=== PATIENT | male | born 1950 | race Caucasian/White ===

== ENCOUNTER 2018-03-26 12:10 | Day surgery (SDC) | payer MEDICARE ==
[2018-03-26] MEDS ORDERED: MIDAZOLAM INJ 2 MG/2 ML VIAL (J2250) As Ordered (13:05)
[2018-03-26] MEDS ORDERED: ONDANSETRON 4MG/2ML VIAL (J2405) As Ordered (13:05)
[2018-03-26] MEDS ORDERED: PROPOFOL 200 MG/20 ML VIAL As Ordered ×2 (13:05)
[2018-03-26] MEDS ORDERED: LIDOCAINE 2% INJ 100 MG/5 ML SDV (FOR ANES.) As Ordered (13:05)
[2018-03-26] MEDS ORDERED: fentaNYL 100 MCG/2 ML INJECTION (J3010) As Ordered (13:06)
[2018-03-26] MEDS: CETACAINE SPRAY 5GM As Ordered (14:18)
[2018-03-26] MEDS: ceFAZolin 2 GM/D5W 50 ML IV BAG (J0690 PER 500MG) As Ordered (14:46)
[2018-03-26] MEDS: LIDOCAINE 1% SDV INJ 30 ML VIAL As Ordered (15:00)
[2018-03-26] MEDS ORDERED: HYDROMORPHONE HCL 0.5 MG/ 0.5 ML SYRINGE (J1170 PER 1) IV (15:45)
[2018-03-26] MEDS ORDERED: ACETAMINOPHEN TAB 650MG DOSE (2X325MG) PO (15:45)
[2018-03-26] MEDS ORDERED: PERCOCET 5MG/325MG TAB PO (15:45)
[2018-03-26] MEDS ORDERED: fentaNYL 100 MCG/2 ML INJECTION (J3010) IV (15:45)
[2018-03-26] MEDS ORDERED: ONDANSETRON 4MG/2ML VIAL (J2405) IV (15:45)
== END 2018-03-26 16:40 | disposition home or self-care (01) ==
LOC: M SDC 12:10
DX: I63.9 Cerebral infarction, unspecified (principal); G47.30 Sleep apnea, unspecified; I10 Essential (primary) hypertension; E78.5 Hyperlipidemia, unspecified; K21.9 Gastro-esophageal reflux disease without esophagitis; J44.9 Chronic obstructive pulmonary disease, unspecified; Z88.7 Allergy status to serum and vaccine; Z79.899 Other long term (current) drug therapy; F17.210 Nicotine dependence, cigarettes, uncomplicated
CPT/HCPCS: 33282

== ENCOUNTER → 2019-03-22 | Outpatient (REF) | payer MEDICARE ==
[~2019-03-22] MED LIST: AMLO5TAB6 PO; ATOR80TA59 PO; CLOP75TA2 PO; DAPS25TA2 PO; FLON1SPR; LISI-538 PO; MULT1TAB10 PO; OMEP20CA4 PO; SILD50TA PO
== END ==
LOC: M SMT 16:55
PROVIDERS: ATTEND Urology
DX: R35.0 Frequency of micturition (principal)
CPT/HCPCS: 51798; 87086; G0463

== ENCOUNTER → 2019-04-25 | Outpatient (CLI) | payer MEDICARE ==
[~2019-04-25] MED LIST changes: +ISOVUE-370 76% 100ML VIAL (Q9967) As Ordered ONE
--- NOTE | 2019-04-25 16:59 | REP ---
Extracranial CTA: 04/25/2019. Indication: Carotid stenosis. Dizziness. Comparison: None. Technique: Axial images of the extracranial carotid and vertebral arteries were obtained following IV administration of 75 ml Isovue 370. Coronal, sagittal and 3-D rotational reconstructions were provided. Findings: There is moderate irregular atherosclerotic narrowing of the proximal left internal carotid artery just beyond the bifurcation with the stenosis measuring approximately 53%. The left vertebral artery is occluded. There is severe stenosis of the proximal right vertebral artery just beyond the origin. There is no significant right ICA stenosis by NASCET criteria. There is retrograde flow to the left of PICA. There is severe stenosis of the mid to distal basilar artery. Prominent bilateral PCoAs are noted. The great vessel origins are patent. There is a small outpouching of contrast near the origin of the brachiocephalic artery which likely represents either a small pseudoaneurysm or ulcerated atherosclerotic disease. The visualized lungs are clear. Impression: Moderate irregular atherosclerotic stenosis of the proximal left ICA as described. No hemodynamically significant right ICA stenosis. Occluded left vertebral artery. High-grade basilar stenosis distally. Electronically Signed by Baldo Friend DO 04/25/2019 04:50 P
== END ==
LOC: M RAD 13:56
PROVIDERS: ATTEND Psychiatry & Neurology Neurology
DX: I65.22 Occlusion and stenosis of left carotid artery (principal); I65.02 Occlusion and stenosis of left vertebral artery
CPT/HCPCS: 70498; Q9967

== ENCOUNTER 2021-05-05 17:15 | Inpatient (IN) | payer MEDICARE, OTHER ==
[~2021-05-05] VITALS: Ht 185.4 cm; Wt 111.0 kg
--- OUTSIDE RECORDS SUMMARY | 2021-05-05 17:29 | CCD | Continuity of Care Document ---
Author Author Isaias WASHINGTON MD Organization Unknown Address [address] [facility], [place] [address] Phone [phone] Care Team Providers Care Cath Lab Nurse Name Role Phone Lianne Kimball MD AUTM [phone] Jaylon Hoover MD AUTM [phone] Adrianne Grove [facility] AUTM [phone] [facility] AUTM [phone] Problems Active Problems Provider Date Hyperlipidemia Enmanuel Washington MD Onset: 03/13/2018 Cerebral artery occlusion WILLI Abel Onset: 2017 Essential hypertension WILLI Abel Onset: 8 Pure hypercholesterolemia WILLI Abel Onset: 2018 Tobacco user WILLI Abel Onset: 12/27/2018 Obesity WILLI Abel Onset: 12/27/2018 Dietary management surveillance WILLI Abel Onset: 12/27/2018 Presence of other cardiac implants and grafts WILLI Lewis Onset: 12/27/2018 Paroxysmal atrial fibrillation WILLI Abel Onset: 0 04/02/2019 Obstructive sleep apnea syndrome Apryl Farias PA-C Onset: 06/29/2020 Sinus node dysfunction Enmanuel Washington MD Onset: 1 Social History Type Date Description Comments Sex Unknown ETOH Use Occasionally consumes alcohol Tobacco Use Start: Unknown End: Unknown Patient is a former smoker started at age 17, at most 2 ppd, quit 09/2018 Smoking Status Reviewed: 04/29/21 Patient is a former smoker st arted at age 17, at most 2 ppd, quit 09/2018 Exercise Type/Frequency General Activities Daily cutting small limbs into kindling Exercise Type/Frequency Physical Therapy Exercise Limitations Imbalance Exercise Limitations Vision Impairment Exercise Limitations Weakness Exercise Limitations Shortness Of Breath Exercise Limitations Dizziness Allergies and adverse reactions Active Allergies Criticality Reaction | Severity Comments Date Tetanus Unable to assess criticality 03/13/2018 Risperdal Unable to assess criticality 03/13/2018 Gluten Unable to assess criticality 03/13/2018 Medications Active Medications SIG Qnty Indications Ordering Provide r Date Potassium Chloride Audra ER 10Meq Tablets ER 1 by mouth every day Unknown 021 Latanoprost 0.005% Solution 1 drop both eyes every night at bedtime [facility] 06/28/2020 Carvedilol 6.25mg Tablets 1 by mouth twice a day, hold for sbp under 150 180tabs WILLI Chan 06/28/2020 Multivitamin Tablets 1 by mouth twice every day Unknown 12/03/2019 Oxybutynin Chloride 5mg Tablets 1 by mouth twice a day Lianne Kimball MD 12/03/2019 Ferrous Gluconate 324(38Fe) mg Tab lets 1 by mouth twice a day Lianne Kimball MD 0 Eliquis 5mg Tablets 1 by mouth twice a day 60tabs Enmanuel Washington MD 06/13/2019 Alfuzosin HCL ER 10mg Tablets ER 2 4HR 1 by mouth every day Unknown 04/01/2019 Lisinopril 20mg Tablets 1 by mouth daily 60tabs Jon Llamas MD 03/12/[address] 1 by mouth every day Unknown 03/12/2018 Atorvastatin Calcium 80mg Tablets 1 by mouth every night at bedtime Unknown 09/2017 Flonase Allergy Relief 50mcg/Act Suspension 1 inhalation each nostril daily Unknown 03/12/2018 Clopidogrel Bisulfate 75mg Tablets 1 by mouth every day Unknown 03/12/2018 Immunizations Description No Information Available Vital Signs Date Vital Result Comment 04/29/2021 12:13pm Weight 243.00 lb Height 73 inches 6'1" BMI (Body Mass Index) 32.1 kg/m2 Heart Rate 78 /min BP Systolic Sitting 154 mmHg CBP, large cuff/Ra BP Diastolic Sitting 74 mmHg CBP, large cuff/Ra 12/29/2020 1:03pm Weight 246.00 lb Height 73 inches 6'1" BMI (Body Mass Index) 32.5 kg/m2 Heart Rate 64 /min Regular Respiratory Rate 16 /min BP Systolic Right Arm 126 mmHg sitting, large cuf f BP Diastolic Right Arm 66 mmHg sitting, large cu ff BP Systolic Left Arm 126 mmHg sittting BP Diastolic Left Arm 70 mmHg sittting Results Description No Information Available Procedures Date Code Description Status 04/29/2021 68548 Office/Outpatient Established Lo w MDM 20-29 Min Completed 04/29/2021 61803 Arterial Pressure Wa veform Analysis For Assessment Of Central Art Completed 04/07/2021 76638 Implantable Loop Recorder System , Review And Report Completed 03/09/2021 86036 Implantable Loop Recorder System , Review And Report Completed 02/04/2021 62561 Implantable Loop Recorder System , Review And Report Completed 01/01/2021 02148 Implantable Loop Recorder System , Review And Report Completed 12/29/2020 64058 Office/Outpatient Established Mo d MDM 30-39 Min Completed 12/29/2020 69092 ECG 12-Lead Completed 11/30/2020 19214 Implantable Loop Recorder System , Review And Report Completed 10/29/2020 07932 Implantable Loop Recorder System , Review And Report Completed Medical Devices Description No Information Available Encounters Type Date Location Provider Dx Diagnosis Office Visit 04/29/2021 12:15p Main Office Enmanuel Washington MD I49.5 Sick sinus syndrome I48.0 Paroxysmal atrial fibrillati on I10 Essential (primary) hyperten johnnie Office Visit 12/29/2020 1:00p Main Office Apryl Farias PA-C I48.0 Paroxysmal atrial fibrillation I10 Essential (primary) hyperten johnnie I63.9 Cerebral infarction, unspeci fied 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 E78.00 Pure hypercholesterolemia, u nspecified G47.33 Obstructive sleep apnea (daphne lt) (pediatric) Assessments Date Code Description Provider 04/29/2021 I49.5 Sick sinus syndrome Enmanuel long MD 04/29/2021 I48.0 Paroxysmal atrial fibrillation D meenakshi Washington MD 04/29/2021 I10 Essential (primary) hypertension Enmanuel Washington MD 04/07/2021 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 [facility] 03/09/2021 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 [facility] 02/04/2021 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 [facility] 01/01/2021 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 [facility] 12/29/2020 I48.0 Paroxysmal atrial fibrillation K ate Glo Farias, PA-C 12/29/2020 I10 Essential (primary) hypertension Apryl Farias, PA-C 12/29/2020 I63.9 Cerebral infarction, unspecified Apryl E Dinora, PA-C 12/29/2020 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 Apryl Farias, PA-C 12/29/2020 E78.00 Pure hypercholesterolemia, unspe cified Apryl Farias PA-C 12/29/2020 G47.33 Obstructive sleep apnea (adult) (pediatric) Apryl Farias PA-C 11/30/2020 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 [facility] 10/29/2020 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 [facility] Plan of Treatment Future Appointment(s):* 05/11/2021 7:00 am - [facility] at Main Office * 06/30/2021 1:00 pm - Apryl Farias PA-C at Main Office 04/29/2021 - Enmanuel Washington MD* I49.5 Sick sinus syndrome* Recommendations:* Implantation of permanent dual-chamber pacemaker was explained to the patient. Also the option of no pacemaker was explained to the patient (risk of syncope and its consequences). Risks of pacemaker implantation were explained to the patient including, but not all-inclusive: Infection (1%), pneumothorax (1%), bleeding/hematoma, poor wound healing, wound dehiscence, adverse drug reaction, cardiac dysrhythmias, lead dislodgment, cardiac perforation with cardiac tamponade (09/999). Patient was agreeable for implantation of a permanent dual chamber pacemaker. Patient was agreeable and signed consent form for implantation of dual-chamber pacemaker. Arrangements in progress for patient to undergo implantation of dual chamber pacemaker in the near future. Concurrently he will have removal of the sub-cutaneous cardiac rhythm monitor. He was instructed to hold Eliquis beginning 2 days prior to surgery and to hold clopidogrel 2 days prior to surgery. * I48.0 Paroxysmal atrial fibrillation* Recommendations:* Continue carvedilol and Eliquis. As noted above, Eliquis will be held for 2 days prior to pacemaker implantation. * I10 Essential (primary) hypertension* Recommendations:* Continue carvedilol and lisinopril at the current dosages. * All * Follow up:* 1. Book Medtronic dual-chamber pacemaker implant AND ILR removal by Dr. Washington. 2. Book incision check/staple removal 7 days after pacemaker implant. Functional Status Functional Condition Comment Date Status Requires assistance with ambulating with cane Active Requires assistance with dressing Active Requires assistance with bathing reaching shower head Active Independent with feeding Active Independent with grooming Active Independent with standing Active Independent with toileting Activ e Mental Status Description No Information Available Referrals Description No Information Available
--- OUTSIDE RECORDS SUMMARY | 2021-05-05 17:29 | CCD | Continuity of Care Document ---
Author Author Isaias WASHINGTON MD Organization Unknown Address [address] [facility], [place] [address] Phone [phone] Care Team Providers Care Pharmacy Care Coordinator Name Role Phone Lianne Kimball MD AUTM [phone] Jaylon Hoover MD AUTM [phone] Adrianne Grove [facility] AUTM [phone] [facility] AUTM [phone] Problems Active Problems Provider Date Hyperlipidemia Enmanuel [...] drop both eyes every night at bedtime [facility] ent Clinic 06/28/2020 Carvedilol 6.25mg [...] Available Procedures Date Code Description Status 04/29/2021 81581 Office/Outpatient Established Lo w MDM 20-29 Min Completed 04/29/2021 36597 Arterial Pressure Wa veform Analysis For Assessment Of Central Art Completed 04/07/2021 64291 Implantable Loop Recorder System , Review And Report Completed 03/09/2021 23148 Implantable Loop Recorder System , Review And Report Completed 02/04/2021 84001 Implantable Loop Recorder System , Review And Report Completed 01/01/2021 15610 Implantable Loop Recorder System , Review And Report Completed 12/29/2020 61559 Office/Outpatient Established Mo d MDM 30-39 Min Completed 12/29/2020 51458 ECG 12-Lead Completed 11/30/2020 00565 Implantable Loop Recorder System , Review And [...] Clinic 12/29/2020 I48.0 Paroxysmal atrial fibrillation K WILLI Batista-C 12/29/2020 I10 Essential (primary) hypertension Apryl Farias PA-C 12/29/2020 I63.9 Cerebral infarction, unspecified Apryl Farias PA-C 12/29/2020 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 ANGELIQUE ChanC 12/29/2020 E78.00 Pure hypercholesterolemia, unspe cified Apryl Farias PA-C 12/29/2020 G47.33 Obstructive sleep apnea (adult) (pediatric) ANGELIQUE ChanC 11/30/2020 Z95.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 of other cardiac implan [...] rhythm monitor. He was instructed to hold EliAudiodraft beginning 2 days prior to surgery and [...]
--- OUTSIDE RECORDS SUMMARY | 2021-05-05 17:29 | CCD ---
"Continuity of Care Document (CCD) Created on: 03/31/2021 Isaias Sesay External Reference #: [id number] : [id number] Sex: Male Author Author Isaias ORTA P.A.-C. Organization Unknown Address [address] [place] [address] Phone [phone] Care Team Providers Care Case Hardener Name Role Phone Jaylon Hoover AUTM [phone] Problems Active Problems Provider Date Ischemic stroke Lianne Kimball M.D. Onset: 03/31/2017 Social History Type Date Description Comments Sex Unknown Tobacco Use Start: Unknown Patient smoking status is unknow n Allergies, Adverse Reactions, Alerts Active Allergies Criticality Reaction | Severity Comments Date Risperidone Unable to assess criticality 12/25/2019 Tetanus Unable to assess criticality 12/25/2019 Gluten Unable to assess criticality 12/25/2019 Medications Active Medications SIG Qnty Indications Ordering Provide r Date PT: Evaluate And Treat CVA, unsteady gait, imbalance, and weakness Lianne Kimball M.D. 09/19/2019 Plavix 75mg Tablets 1 by mouth every day 30tabs Lianne Kimball M.D. 02/06/2018 Immunizations Description No Information Available Vital Signs Date Vital Result Comment 2021 10:02am BP Systolic 110 mmHg BP Diastolic 80 mmHg Heart Rate 64 /min Respiratory Rate 16 /min 12/18/2020 8:59am BP Systolic 106 mmHg BP Diastolic 70 mmHg Heart Rate 76 /min Respiratory Rate 20 /min Results Description No Information Available Procedures Date Code Description Status 2021 14805 Office/Outpatient Established Mo d MDM 30-39 Min Completed 12/18/2020 68474 Office/Outpatient Established Mo d MDM 30-39 Min Completed Medical Devices Description No Information Available Encounters Type Date Location Provider Dx Diagnosis Office Visit 2021 2:45p Main office - [place] Lisandra J. Tric johnson, P.A.-C. I63.89 Other cerebral infarction I65.09 Occlusion and stenosis of un specified vertebral artery G93.0 Cerebral cysts R42 Dizziness and giddiness R26.81 Unsteadiness on feet G47.33 Obstructive sleep apnea (daphne lt) (pediatric) Office Visit 12/18/2020 11:30a Main office - [place] Airam CastellanoA.-CMichael R42 Dizziness and giddiness R26.81 Unsteadiness on feet G93.0 Cerebral cysts I63.89 Other cerebral infarction I65.09 Occlusion and stenosis of un specified vertebral artery G47.33 Obstructive sleep apnea (daphne lt) (pediatric) Assessments Date Code Description Provider 2021 I63.89 Other cerebral infarction Shari Bajwa.A.-C. 2021 I65.09 Occlusion and stenosis of unspec ified vertebral artery Shari Hernández.A.-C. 2021 G93.0 Cerebral cysts Lisandra Orta P.A.-C. 2021 R42 Dizziness and giddiness Lisandra Orta, P.A.-C. 2021 R26.81 Unsteadiness on feet Shari Valladares.A.-C. 2021 G47.33 Obstructive sleep apnea (adult) (pediatric) Lisandra Orta P.A.-C. 12/18/2020 R42 Dizziness and giddiness Lisandra Orta P.A.-C. 12/18/2020 R26.81 Unsteadiness on feet Lisandra walker P.A.-C. 12/18/2020 G93.0 Cerebral cysts Lisandra Orta P.A.-C. 12/18/2020 I63.89 Other cerebral infarction Lisandra Orta P.A.-C. 12/18/2020 I65.09 Occlusion and stenosis of unspec ified vertebral artery Lisandra Orta P.A.-C. 12/18/2020 G47.33 Obstructive sleep apnea (adult) (pediatric) Lisandra Orta P.A.-C. Plan of Treatment Future Appointment(s):* 06/24/2021 2:30 pm - Lisandra Orta P.A.-C. at Main office [facility] 2021 - Lisandra Orta P.A.-C.* I63.89 Other cerebral infarction* Comments:* Not recurrent. Continue current medications. * I65.09 Occlusion and stenosis of unspecified vertebral artery* Comments:* Repeat MRA in May to assess for change in left carotid bulb stenosis. * G93.0 Cerebral cysts* Comments:* Repeat MRI brain in May. * R42 Dizziness and giddiness* Comments:* Continue PT and use of cane. * R26.81 Unsteadiness on feet* Comments:* Continue PT and use of cane. * G47.33 Obstructive sleep apnea (adult) (pediatric)* Comments:* Continue CPAP. * Follow up:* 3 months Functional Status Description No Information Available Mental Status Description No Information Available Referrals Description No Information Available"
--- OUTSIDE RECORDS SUMMARY | 2021-05-05 17:29 | CCD | Continuity of Care Document ---
Author Author Isaias JEAN F.N.P. Organization Unknown Address [address], [address] [place] [address] Phone [phone] Care Team Providers Care Service Order Dispatcher Chief Name Role Phone [facility] AUTM [phone] Problems Description No Information Available Social History Type Date Description Comments Sex Unknown Tobacco Use Start: Unknown End: Unknown Former Cigarette Smo ker Quit 2017 ETOH Use Social Drinker Tobacco Use Start: Unknown Patient is a current smoker, smo kes every day Sun Exposure minimum amount of sun exposure Sun Exposure Has never used tanning bed Sun Exposure Has experienced blistering from sunburns Sun Exposure Does not use sunscreen Avoids th e sun Allergies and adverse reactions Active Allergies Criticality Reaction | Severity Comments Date Tetanus Toxoids Unable to assess criticality 12/23/2014 Risperdal Unable to assess criticality 12/23/2014 Wellbutrin Unable to assess criticality agitation 09/07/2015 Gluten Unable to assess criticality 03/05/2018 Medications Active Medications SIG Qnty Indications Ordering Provide r Date Potassium Adrianne Jean, F.N.P. 03/30/2021 Clobetasol Propionate 0.05% Cream apply to affected area sparingly twice a day x 2 weeks 60gm Ph yl LALY Thompson-CASSI 03/30/2020 Dapsone 25mg Tablets 1 tab po bid 120tabs L13.0 Adrianne Jean, F.N.P. 10/03/[address] 1 tab by mouth qd Unknown Lisinopril 2.5mg Tablets Unknown Atorvastatin Calcium Unknown Multivitamin Adult Unknown Coreg 6.25mg Tablets Unknown Ferrous Gluconate 324(38Fe) mg Tablets Unknown Alfuzosin HCL ER 10mg Tablets ER 24HR Unknown Flonase Allergy Relief 50mcg/Act Suspension two sprays in each nostril qd. Unknown Oxybutynin Chloride ER Unknown Eliquis Unknown Sildenafil Citrate Unknown Latanoprost Unknown Artificial Tears Unknown Immunizations Description No Information Available Vital Signs Date Vital Result Comment 03/30/2021 12:34pm BP Systolic 155 mmHg BP Diastolic 84 mmHg Weight 243.00 lb Height 73 inches 6'1" BMI (Body Mass Index) 32.1 kg/m2 03/30/2020 12:22pm BP Systolic 132 mmHg BP Diastolic 76 mmHg Body Temperature 97.6 F Results Description No Information Available Procedures Date Code Description Status 03/30/2021 40517 Office/Outpatient Established Mo d MDM 30-39 Min Completed 12/2011 63356234 Colonoscopy Completed 02/2007 61787774 Mammogram Completed Medical Devices Description No Information Available Encounters Type Date Location Provider Dx Diagnosis Office Visit 03/30/2021 12:30p Main Office Adrianne Jean, F.N.P. 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 03/30/2021 D22.4 Melanocytic nevi of scalp and ne ck Adrianne Jean, F.N.P. 03/30/2021 D22.71 Melanocytic nevi of right lower limb, including hip Adrianne Jean, F.N.P. 03/30/2021 L82.1 Other seborrheic keratosis Gini Veloz'suzan, F.N.P. 03/30/2021 L81.4 Other melanin hyperpigmentation Leana Calix. 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 03/30/2021 Z12.83 Encounter for screening for ivctoria gnant neoplasm of skin Leana Calix. Plan of Treatment Future Appointment(s):* 03/31/2022 12:15 pm - Linh CalixN.Shari. at Main Office 03/30/2021 - Leana Calix.* D22.5 Melanocytic nevi of trunk* Comments:* Nevi on trunk appear healthy. Monitor for changes. Sun protection and sunscreen use discussed. Literature given on how to perform monthly self skin exam. Should any moles change in shape or color, itch, bleed or burn, pt will contact office for evaluation sooner than their interval appointment. * D22.4 Melanocytic nevi of scalp and neck* Comments:* Nevus on scalp appears healthy. Monitor for changes. Literature given on how to perform monthly self skin exam. Should any moles change in shape or color, itch, bleed or burn, pt will contact office for evaluation sooner than their interval appointment. * D22.71 Melanocytic nevi of right lower limb, including hip* Comments:* Nevus R posterior thigh appears healthy. Monitor for changes. * L82.1 Other seborrheic keratosis* Comments:* Reassurance.Discussed seborrheic keratoses are benign warty growths on the skin that appear with age and that they are not contagious. The precise cause of Chato K's is unknown although can run in families so genes may play a role.Discussed if ever becomes irritated to call for a removal appointment. * L81.4 Other melanin hyperpigmentation* Comments:* Solar lentigines - reassurance.Discussed that solar lentignes appear from the sun that was received years ago. 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 Continues to avoid gluten as much as possible, if he is going to have some at dinner he will take a pill before dinner. Call with any problems * Z12.83 Encounter for screening for malignant neoplasm of skin* Comments:* See above * Follow up:* Yearly/PRN - [facility] Functional Status Description No Information Available Mental Status Description No Information Available Referrals Description No Information Available
--- OUTSIDE RECORDS SUMMARY | 2021-05-05 17:29 | CCD | Continuity of Care Document ---
Author Author [facility] Organization Unknown Address [address] [place] [address], [place] [address] Phone Unavailable Care Team Providers Care Manager Of Network Name Role Phone Lianne Kimball MD [facility] [phone] Jaylon Hoover MD [facility] [phone] Adrianne Grove [facility] [phone] [facility] [phone] Problems Active Problems Provider Date Hyperlipidemia Enmanuel [...] apnea syndrome Apryl Farias PA-C Onset: 06/29/2020 Social History Type Date Description Comments Sex Unknown ETOH Use Occasionally consumes alcohol Tobacco Use Start: Unknown End: Unknown Patient is a former smoker started at age 17, at most 2 ppd, quit 09/2018 Smoking Status Reviewed: 12/29/20 Patient is a former smoker st arted at age 17, at most 2 ppd, quit 09/2018 Exercise Type/Frequency General Activities Daily cutting small limbs into kindling Exercise Type/Frequency Physical Therapy Exercise Limitations Imbalance Exercise Limitations Vision Impairment Exercise Limitations Weakness Exercise Limitations Shortness Of Breath Exercise Limitations Dizziness Allergies, Adverse Reactions, Alerts Active Allergies Criticality [...] drop both eyes every night at bedtime [facility] 06/28/2020 Carvedilol 6.25mg Tablets 1 by mouth twice a day, hold for SBP under 150 Lianne Kimball MD 06/28/2020 Multivitamin Tablets 1 by mouth twice [...] 1 by mouth every day Unknown 04/01/2019 Clobetasol Propionate 0.05% Cream as needed Unknown 12/26/2018 Lisinopril 20mg Tablets 1 by mouth daily 60tabs Jon Llamas MD 03/12/[address] 1 by mouth every day Unknown 03/12/2018 Atorvastatin Calcium 80mg Tablets 1 by mouth every night at bedtime Unknown 09/2017 Dapsone 25mg Tablets 1 by giuseppe th bid Unknown 03/12/2018 Flonase Allergy Relief 50mcg/Act Suspension 1 inhalation each nostril daily Unknown 03/12/2018 Clopidogrel Bisulfate 75mg Tablets 1 by mouth every day Unknown 03/12/2018 Immunizations Description No Information Available Vital Signs Date Vital Result Comment 12/29/2020 1:03pm Weight 246.00 lb Height 73 inches 6'1" BMI (Body Mass Index) 32.5 kg/m2 Heart Rate 64 /min Regular Respiratory Rate 16 /min BP Systolic Right Arm 126 mmHg sitting, large cuf f BP Diastolic Right Arm 66 mmHg sitting, large cu ff BP Systolic Left Arm 126 mmHg sittting BP Diastolic Left Arm 70 mmHg sittting 06/29/2020 8:10am Weight 247.00 lb Height 73 inches 6'1" BMI (Body Mass Index) 32.6 kg/m2 Heart Rate 92 /min Regular Respiratory Rate 16 /min BP Systolic Right Arm 128 mmHg sitting, large cuf f BP Diastolic Right Arm 62 mmHg sitting, large cu ff BP Systolic Left Arm 132 mmHg sitting BP Diastolic Left Arm 62 mmHg sitting Results Description No Information Available Procedures Date Code Description Status 04/07/2021 91103 Implantable Loop Recorder System , Review And Report Completed 03/09/2021 95220 Implantable Loop Recorder System , Review And Report Completed 02/04/2021 28252 Implantable Loop Recorder System , Review And Report Completed 01/01/2021 21130 Implantable Loop Recorder System , Review And Report Completed 12/29/2020 66537 Office/Outpatient Established Mo d MDM 30-39 Min Completed 12/29/2020 94567 ECG 12-Lead Completed 11/30/2020 31284 Implantable Loop Recorder System , Review And Report Completed 10/29/2020 13889 Implantable Loop Recorder System , Review And Report Completed Medical Devices Description No Information Available Encounters Type Date Location Provider Dx Diagnosis Office Visit 12/29/2020 1:00p Main Office Apryl Farias PA-C I48.0 Paroxysmal atrial fibrillation I10 Essential (primary) hyperten johnnie I63.9 Cerebral infarction, unspeci fied 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 E78.00 Pure hypercholesterolemia, u nspecified G47.33 Obstructive sleep apnea (daphne lt) (pediatric) Assessments Date Code Description Provider 04/07/2021 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 [facility] 03/09/2021 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 [facility] 02/04/2021 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 [facility] 01/01/2021 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 [facility] 12/29/2020 I48.0 Paroxysmal atrial fibrillation Destiney Farias PA-C 12/29/2020 I10 Essential (primary) hypertension Apryl Farias PA-C 12/29/2020 I63.9 Cerebral infarction, unspecified Apryl Farias, PA-C 12/29/2020 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 Apryl Farias PA-C 12/29/2020 E78.00 Pure hypercholesterolemia, unspe cified Apryl Farias, PA-C 12/29/2020 G47.33 Obstructive sleep apnea (adult) (pediatric) Apryl Farias PA-C 11/30/2020 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 [facility] 10/29/2020 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 [facility] Plan of Treatment Future Appointment(s):* 05/11/2021 7:00 am - [facility] Main [facility] * 06/30/2021 1:00 pm - Apryl Farias PA-C at Main Office 12/29/2020 - ANGELIQUE [facility]C* I48.0 Paroxysmal atrial fibrillation * I10 Essential (primary) hypertension * I63.9 Cerebral infarction, unspecified * Z95.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 of other cardiac implants and grafts * E78.00 Pure hypercholesterolemia, unspecified * G47.33 Obstructive sleep apnea (adult) (pediatric) * All * Follow up:* 6 month follow up. [facility] Functional Status Functional Condition Comment Date Status Requires assistance with ambulating with cane Active Requires assistance with dressing Active Requires assistance with bathing reaching shower head Active Independent with feeding Active Independent with grooming Active Independent with standing Active Independent with toileting Activ e Mental Status Description No Information Available Referrals Description No Information Available
--- OUTSIDE RECORDS SUMMARY | 2021-05-05 17:30 | CCD ---
Author Author [facility] Organization [facility] Address Unknown Phone Unavailable Care Team Providers Care Access Rep Name Role Phone JuliannewCiara PA Unavailable Unavailable Symenow, Ciara Pink PA Unavailable Unavailable Symenow, Ciara Pink PA Unavailable Unavailable Symenow, Ciara Pink PA Unavailable Unavailable Symenow, Ciara Pink PA Unavailable Unavailable Symenow, Ciara Pink PA Unavailable Unavailable Symenow, Ciara Pink PA Unavailable Unavailable Symenow, Ciara Pink PA Unavailable Unavailable Symenow, Ciara Pink PA Unavailable Unavailable Symenow, Ciara Pink PA Unavailable Unavailable Symenow, Ciara Pink PA Unavailable Unavailable Symenow, Ciara Pink PA Unavailable Unavailable Symenow, Ciara Pink PA Unavailable Unavailable Symenow, Ciara Pink PA Unavailable Unavailable Symenow, Ciara Pink PA Unavailable Unavailable Symenow, Ciara Pink PA Unavailable Unavailable Symenow, Ciara Maurere PA Unavailable Unavailable Symenow, Ciara Pink PA Unavailable Unavailable Symenow, Ciara Pink PA Unavailable Unavailable Symenow, Ciara Pink PA Unavailable Unavailable Symenow, Ciara Apryl PA Unavailable Unavailable Symenow, Ciara Apryl PA Unavailable Unavailable Symenow, Ciara Apryl PA Unavailable Unavailable Symenow, Ciara Apryl PA Unavailable Unavailable Symenow, Ciara Apryl PA Unavailable Unavailable Symenow, Ciara Apryl PA Unavailable Unavailable Symenow, Ciara Apryl PA Unavailable Unavailable Symenow, Ciara Apryl PA Unavailable Unavailable Symenow, Ciara Apryl PA Unavailable Unavailable Symenow, Ciara Apryl PA Unavailable Unavailable Symenow, Ciara Apryl PA Unavailable Unavailable Symenow, Ciara Apryl PA Unavailable Unavailable Symenow, Ciara Apryl PA Unavailable Unavailable Symenow, Ciara Apryl PA Unavailable Unavailable Trickey, J Lisandra PA Unavailable Unavailable Trickey, J Lisandra PA Unavailable Unavailable Trickey, J Lisandra PA Unavailable Unavailable Trickey, J Lisandra PA Unavailable Unavailable Trickey, J Lisandra PA Unavailable Unavailable Trickey, J Lisandra PA Unavailable Unavailable Trickey, J Lisandra PA Unavailable Unavailable Trickey, J Lisandra PA Unavailable Unavailable Trickey, J Lisandra PA Unavailable Unavailable Trickey, J Lisandra PA Unavailable Unavailable Trickey, J Lisandra PA Unavailable Unavailable Trickey, J Lisandra PA Unavailable Unavailable Trickey, J Lisandra PA Unavailable Unavailable Trickey, J Lisandra PA Unavailable Unavailable Trickey, J Lisandra PA Unavailable Unavailable Trickey, J Lisandra PA Unavailable Unavailable Trickey, J Lisandra PA Unavailable Unavailable Trickey, J Lisandra PA Unavailable Unavailable Trickey, J Lisandra PA Unavailable Unavailable Trickey, J Lisandra PA Unavailable Unavailable Trickey, J Lisandra PA Unavailable Unavailable Trickey, J Lisandra PA Unavailable Unavailable Trickey, J Lisandra PA Unavailable Unavailable Trickey, J Lisandra PA Unavailable Unavailable Trickey, J Lisandra PA Unavailable Unavailable Trickey, J Lisandra PA Unavailable Unavailable Trickey, J Lisandra PA Unavailable Unavailable Trickey, J Lisandra PA Unavailable Unavailable Trickey, J Lisandra PA Unavailable Unavailable Trickey, J Lisandra PA Unavailable Unavailable Trickey, J Lisandra PA Unavailable Unavailable Trickey, J Lisandra PA Unavailable Unavailable Trickey, J Lisandra PA Unavailable Unavailable Trickey, J Lisandra PA Unavailable Unavailable Trickey, J Lisandra PA Unavailable Unavailable Trickey, J Lisandra PA Unavailable Unavailable Trickey, J Lisandra PA Unavailable Unavailable Trickey, Renee Fry PA Unavailable Unavailable Trickey, Renee Fry PA Unavailable Unavailable Trickey, Renee Kimbrougha PA Unavailable Unavailable Trickey, Renee Kimbrougha PA Unavailable Unavailable Trickey, Renee Kimbrougha PA Unavailable Unavailable Trickey, Renee Fry PA Unavailable Unavailable Trickey, Renee Fry PA Unavailable Unavailable Trickey, Renee Fry PA Unavailable Unavailable Trickey, Renee Kimbrougha PA Unavailable Unavailable Trickey, Renee Lisandra PA Unavailable Unavailable Trickey, Renee Kimbrougha PA Unavailable Unavailable Trickey, J Lisandra PA Unavailable Unavailable Mille Lacs, Erma CATALYST UNIT OPERATOR Unavailable Unavailable [place]acs, Erma CATALYST UNIT OPERATOR Unavailable Unavailable [place], Erma CATALYST UNIT OPERATOR Unavailable Unavailable [place]acs, Erma CATALYST UNIT OPERATOR Unavailable Unavailable [place]acs, Erma CATALYST UNIT OPERATOR Unavailable Unavailable [place]acs, Erma CATALYST UNIT OPERATOR Unavailable Unavailable [place]acs, Erma CATALYST UNIT OPERATOR Unavailable Unavailable [place]acs, Erma CATALYST UNIT OPERATOR Unavailable Unavailable [place]acs, Erma CATALYST UNIT OPERATOR Unavailable Unavailable [place]acs, Erma CATALYST UNIT OPERATOR Unavailable Unavailable [place], Erma CATALYST UNIT OPERATOR Unavailable Unavailable [place], Erma CATALYST UNIT OPERATOR Unavailable Unavailable [place], Erma CATALYST UNIT OPERATOR Unavailable Unavailable [place], Erma CATALYST UNIT OPERATOR Unavailable Unavailable [place], Erma CATALYST UNIT OPERATOR Unavailable Unavailable [place], Erma CATALYST UNIT OPERATOR Unavailable Unavailable [place], Erma CATALYST UNIT OPERATOR Unavailable Unavailable [place], Erma CATALYST UNIT OPERATOR Unavailable Unavailable [place], Erma CATALYST UNIT OPERATOR Unavailable Unavailable [place], Erma CATALYST UNIT OPERATOR Unavailable Unavailable [place], Erma CATALYST UNIT OPERATOR Unavailable Unavailable [place], Erma CATALYST UNIT OPERATOR Unavailable Unavailable [place], Erma CATALYST UNIT OPERATOR Unavailable Unavailable [place], Erma CATALYST UNIT OPERATOR Unavailable Unavailable [place], Erma CATALYST UNIT OPERATOR Unavailable Unavailable [place], Erma CATALYST UNIT OPERATOR Unavailable Unavailable [place], Erma CATALYST UNIT OPERATOR Unavailable Unavailable [place], Erma CATALYST UNIT OPERATOR Unavailable Unavailable [place], Erma CATALYST UNIT OPERATOR Unavailable Unavailable [place], Erma CATALYST UNIT OPERATOR Unavailable Unavailable [place], Donna Silver CATALYST UNIT OPERATOR Unavailable Unavailable [place], Donna Silver CATALYST UNIT OPERATOR Unavailable Unavailable [place], Donna Silver CATALYST UNIT OPERATOR Unavailable Unavailable [place], Donna Silver CATALYST UNIT OPERATOR Unavailable Unavailable [place], Donna Silver CATALYST UNIT OPERATOR Unavailable Unavailable [place], Donna Silver CATALYST UNIT OPERATOR Unavailable Unavailable ANTECOL, Lorie ZAIDI MD Unavailable Unavailable ANTECOL, Lorie ZAIDI MD Unavailable Unavailable ANTECOL, Lorie ZAIDI MD Unavailable Unavailable ANTECOL, Lorie ZAIDI MD Unavailable Unavailable ANTECOL, Lorie ZAIDI MD Unavailable Unavailable ANTECOL, Lorie ZAIDI MD Unavailable Unavailable ANTECOL, Lorie ZAIDI MD Unavailable Unavailable ANTECOL, Lorie ZAIDI MD Unavailable Unavailable ANTECOL, Lorie ZAIDI MD Unavailable Unavailable ANTECOL, Lorie ZAIDI MD Unavailable Unavailable ANTECOL, Lorie ZAIDI MD Unavailable Unavailable ANTECOL, Lorie ZAIDI MD Unavailable Unavailable ANTECOL, Lorie ZAIDI MD Unavailable Unavailable ANTECOL, Lorie ZAIDI MD Unavailable Unavailable ANTECOL, Lorie ZAIDI MD Unavailable Unavailable ANTECOL, Lorie ZAIDI MD Unavailable Unavailable ANTECOL, Lorie ZAIDI MD Unavailable Unavailable ANTECOL, Lorie ZAIDI MD Unavailable Unavailable ANTECOL, Lorie ZAIDI MD Unavailable Unavailable ANTECOL, Lorie ZAIDI MD Unavailable Unavailable ANTECOL, Lorie ZAIDI MD Unavailable Unavailable ANTECOL, Lorie ZAIDI MD Unavailable Unavailable ANTECOL, Lorie ZAIDI MD Unavailable Unavailable ANTECOL, Lorie ZAIDI MD Unavailable Unavailable ANTECOL, Lorie ZAIDI MD Unavailable Unavailable ANTECOL, Lorie ZAIDI MD Unavailable Unavailable ANTECOL, Lorie ZAIDI MD Unavailable Unavailable ANTECOL, Lorie ZAIDI MD Unavailable Unavailable ANTECOL, Lorie ZAIDI MD Unavailable Unavailable ANTECOL, Lorie ZAIDI MD Unavailable Unavailable ANTECOL, Lorie ZAIDI MD Unavailable Unavailable ANTECOL, Lorie ZAIDI MD Unavailable Unavailable ANTECOL, Lorie ZAIDI MD Unavailable Unavailable ANTECOL, Lorie ZAIDI MD Unavailable Unavailable ANTECOL, Lorie ZAIDI MD Unavailable Unavailable ANTECOL, Lorie ZAIDI MD Unavailable Unavailable ANTECOL, Lorie ZAIDI MD Unavailable Unavailable ANTECOL, Lorie ZAIDI MD Unavailable Unavailable ANTECOL, Lorie ZAIDI MD Unavailable Unavailable ANTECOL, Lorie ZAIDI MD Unavailable Unavailable ANTECOL, Lorie ZAIDI MD Unavailable Unavailable ANTECOL, Lorie ZAIDI MD Unavailable Unavailable ANTECOL, Lorie ZAIDI MD Unavailable Unavailable ANTECOL, Lorie ZAIDI MD Unavailable Unavailable ANTECOL, Lorie ZAIDI MD Unavailable Unavailable ANTECOL, Lorie ZAIDI MD Unavailable Unavailable ANTECOL, Lorie ZAIDI MD Unavailable Unavailable ANTECOL, Lorie ZAIDI MD Unavailable Unavailable ANTECOL, Lorie ZAIDI MD Unavailable Unavailable ANTECOL, Lorie ZAIDI MD Unavailable Unavailable ANTECOL, Lorie ZAIDI MD Unavailable Unavailable ANTECOL, Lorie ZAIDI MD Unavailable Unavailable ANTECOL, Lorie ZAIDI MD Unavailable Unavailable ANTECOL, H DYAN MD Unavailable Unavailable Re-disclosure Warning The records that you are about to access may contain information from federally-assisted alcohol or drug abuse programs. If such information is present, then the following federally mandated warning applies: This information has been disclosed to you from records protected by federal confidentiality rules (42 CFR part 2). The federal rules prohibit you from making any further disclosure of this information unless further disclosure is expressly permitted by the written consent of the person to whom it pertains or as otherwise permitted by 42 CFR part 2. A general authorization for the release of medical or other information is NOT sufficient for this purpose. The Federal rules restrict any use of the information to criminally investigate or prosecute any alcohol or drug abuse patient.The records that you are about to access may contain highly sensitive health information, the redisclosure of which is protected by Article 27-F of the [facility] Public Health law. If you continue you may have access to information: Regarding HIV / AIDS; Provided by facilities licensed or operated by the [facility] Office of Mental Health; or Provided by the [facility] Office for People With Developmental Disabilities. If such information is present, then the following [facility] mandated warning applies: This information has been disclosed to you from confidential records which are protected by state law. State law prohibits you from making any further disclosure of this information without the specific written consent of the person to whom it pertains, or as otherwise permitted by law. Any unauthorized further disclosure in violation of state law may result in a fine or penitentiary sentence or both. A general authorization for the release of medical or other information is NOT sufficient authorization for further disc losure. Family History Family Member Name Family Member Gender Family Member Status Date o f Status Description Data Source(s) Unknown Male Problem [facility] Unknown Female Problem [facility] ([facility]) Encounters Encounter Providers Location Date Indications Data Source(s ) Outpatient Attender: DYNA MEREDITH MD Main Office 04/29/2021 12:15:00 PM EDT [facility] ([facility]) Outpatient Attender: Adrianne Aguirre CATALYST UNIT OPERATOR Main Office 03/30/2021 12:30:00 PM EDT MED[facility] ([facility] Outpatient Attender: Lisandra M[place]RQUEZ [place] 02:45:00 PM EDT MED[facility] ([facility]) Outpatient Attender: Apryl MÁRQUEZ Main Office 12/29/2020 01:00:00 PM EDT [facility] ([facility]) Outpatient Attender: Lisandra MÁRQUEZ Main office - [place] 12/18/2020 11:30:00 AM EDT MED[facility] ([facility]) Outpatient Attender: Lisandra MÁRQUEZ Main office - [place] 09/15/2020 11:00:00 AM EST MED[facility] ([facility]) Outpatient Attender: Lisandra MÁRQUEZ Main office - [facility] [place] 07/08/2020 12:45:00 PM EST MED[facility] ([facility]) Outpatient Attender: Apryl MÁRQUEZ Main Office 06/29/2020 07:15:00 AM EST [facility] ([facility]) Outpatient Attender: DYAN MEREDITH MD Main Office 05/26/2020 10:00:00 AM EST MED[facility] ([facility]) Outpatient Attender: Lisandra MÁRQUEZ Main office - [facility] [place] [facility] 04/08/2020 11:45:00 AM EDT [facility] ([facility]) Medications Medication Brand Name Start Date Product Form Dose Route Admi nistrative Instructions Pharmacy Instructions Status Indications Reaction Description Data Source(s) 240 mcg/0.7 mL 04/21/2021 12:00:00 AM EDT syringe 0 INJECT DIRECTED INJECT DIRECTED SOLD: 04/21/2021 [facility] Potassium 03/30/2021 12:00:00 AM EDT active MED[facility] ([facility]) Potassium Chloride 10 MEQ Extended Release Oral Tablet Potassium Chloride [facility] 12/28/2020 12:00:00 AM EDT ORAL active [facility] ([facility]) latanoprost 0.05 MG/ML Ophthalmic Solution Latanoprost 06/28/2020 12:00:00 AM EST OPHTHALMIC active [facility] ([facility]) carvedilol 6.25 MG Oral Tablet Carvedilol 06/28/2020 12:00:00 AM EST ORAL active [facility] ([facility]) Atenolol 50 MG Oral Tablet Atenolol 05/26/2020 12:00:00 AM EST ORAL completed [facility] ([facility]) carvedilol 6.25 MG Oral Tablet Carvedilol 05/25/2020 12:00:00 AM EST ORAL completed MED[facility] ([facility]) Clobetasol Propionate 0.5 MG/ML Topical Cream Clobetasol Pro pionate 03/30/2020 12:00:00 AM EDT active M EDENT ([facility]) carvedilol 6.25 MG Oral Tablet Carvedilol 12/04/2019 12:00:00 AM EDT ORAL completed [facility] Insurance Providers Payer name Policy type / Coverage type Policy ID Covered green party ID Covered green party's relationship to corbett Policy Corbett Plan Information MEDICARE A [id number] Self [id number] A Medicare (Part B) Medicare Primary [id number] Self [id number] Medicare (Part B) Medicare Primary [id number] Self [id number] Medicare (Part B) Medicare Primary [id number] Self [id number] Medicare (Part B) Medicare Primary [id number] Self [id number] Medicare (Part B) Medicare Primary [id number] Self [id number] Medicare (Part B) Medicare Primary [id number] Self [id number] MEDICARE [id number] SP [id number] A Medicare (Part B) Medicare Primary [id number] Self [id number] AARP U [id number] Self [id number] AARP U [id number] Self [id number] [place] [id number] Self [id number] A MEDICARE [id number] SP [id number] AARP HE[employer] CARE OPTIONS [id number] SP [id number] A[employer] HE[employer] CARE OPTIONS [id number] SP [id number] [employer] Options Medigap Part B [id number] Self [id number] [employer] Medigap Part B [id number] Self [id number] [employer] Medigap Part B [id number] Self [id number] [employer] Medigap Part B [id number] Self [id number] [employer] Medigap Part B [id number] Self [id number] [employer] Options Medigap Part B [id number] Self [id number] [employer] Options Medigap Part B [id number] Self [id number] MVP (pr) Commercial [id number] Family Dependent Problems, Conditions, and Diagnoses Code Display Name Description Problem Type Effective Dates Data Source(s) I49.5 Sinus node dysfunction Sinus node dysfunction Problem 04/29/2021 12:00:00 AM EDT [facility] ([facility]) G47.33 Obstructive sleep apnea syndrome Obstructive sle ep apnea syndrome Problem 06/29/2020 12:00:00 AM EST [facility]) Surgeries/Procedures Procedure Description Date Indications Data Source(s) Arterial Pressure Waveform Analysis For Assessment Of Centra l Art 04/29/2021 12:00:00 AM EDT [facility] ([facility]) OFFICE OUTPATIENT VISIT 15 MINUTES 04/29/2021 12:00:00 AM EDT [facility] ([facility]) Implantable Loop Recorder System, Review And Report 04/07/2021 12:00:00 AM EDT [facility] ([facility]) OFFICE OUTPATIENT VISIT 25 MINUTES 03/30/2021 12:00:00 AM EDT [facility] ([facility]) OFFICE OUTPATIENT VISIT 25 MINUTES 2021 12:00:00 AM EDT [facility] ([facility] ) Implantable Loop Recorder System, Review And Report 03/09/2021 12:00:00 AM EDT [facility] ([facility]) Implantable Loop Recorder System, Review And Report 02/04/2021 12:00:00 AM EDT [facility] ([facility]) Implantable Loop Recorder System, Review And Report 01/01/2021 12:00:00 AM EDT [facility] ([facility]) ECG ROUTINE ECG W/LEAST 12 LDS W/I&R 12/29/2020 12:00: 00 AM EDT [facility] ([facility]) OFFICE OUTPATIENT VISIT 25 MINUTES 12/29/2020 12:00:00 AM EDT [facility] ([facility]) OFFICE OUTPATIENT VISIT 25 MINUTES 12/18/2020 12:00:00 AM EDT [facility] ([facility] ) Implantable Loop Recorder System, Review And Report 11/30/2020 12:00:00 AM EDT [facility] ([facility]) Implantable Loop Recorder System, Review And Report 10/29/2020 12:00:00 AM EDT [facility] ([facility]) Implantable Loop Recorder System, Review And Report 09/23/2020 12:00:00 AM EDT [facility] ([facility]) Implantable Loop Recorder System, Review And Report 08/19/2020 12:00:00 AM EST [facility] ([facility]) Implantable Loop Recorder System, Review And Report 07/17/2020 12:00:00 AM EST [facility] ([facility]) ECG ROUTINE ECG W/LEAST 12 LDS W/I&R 06/29/2020 12:00: 00 AM EST [facility] ([facility]) Implantable Loop Recorder System, Review And Report 06/12/2020 12:00:00 AM EST [facility] ([facility]) Magnetic Resonance Angiogtaphy Head W/O Contrast Material(S) 05/16/2020 12:00:00 AM EST [facility] ([facility]) Magnetic Resonance Angiogtaphy Head W/O Contrast Material(S) 05/16/2020 12:00:00 AM EST [facility] ([facility]) Magnetic Resonance Angiography Neck W/O Contrast Materials 05/16/2020 12:00:00 AM EST [facility] ([facility]) Magnetic Resonance Angiography Neck W/O Contrast Materials 05/16/2020 12:00:00 AM EST [facility] ([facility] ) MRI BRAIN BRAIN STEM W/O CONTRAST MATERIAL 05/16/2020 12:00:00 AM EST [facility] ([facility] ) MRI BRAIN BRAIN STEM W/O CONTRAST MATERIAL 05/16/2020 12:00:00 AM EST [facility] ([facility] ) Implantable Loop Recorder System, Review And Report 05/12/2020 12:00:00 AM EST [facility] ([facility]) Implantable Loop Recorder System, Review And Report 04/07/2020 12:00:00 AM EDT [facility] ([facility]) Results No Information Social History Code Duration Value Status Description Data Source(s ) Smoking 04/29/2021 12:00:00 AM EDT Patient is a former smoker completed Patient is a former smoker [facility] ([facility]) Vital Signs ID Date Data Source UNK Name Value Range Interpretation Code Description Data Source(s) Body height 73 [in_i] 73 [in_i] [facility] ([facility]) 6'1" Body mass index (BMI) [Ratio] 32.1 kg/m2 32.1 k g/m2 [facility] ([facility]) Heart rate 78 /min 78 /min [facility] ([facility]) Systolic blood pressure--sitting 154 mm[Hg] 154 mm[Hg] [facility] ([facility]) CBP, large cuff/Ra Diastolic blood pressure--sitting 74 mm[Hg] 74 mm[Hg] [facility] ([facility]) CBP, large cuff/Ra Body weight 243.00 [lb_av] 243.00 [lb_av] MEDEN T ([facility]) Systolic blood pressure 155 mm[Hg] 155 mm[Hg] M EDENT ([facility]) Diastolic blood pressure 84 mm[Hg] 84 mm[Hg] [facility] ([facility]) Body weight 243.00 [lb_av] 243.00 [lb_av] MEDEN T ([facility]) Body height 73 [in_i] 73 [in_i] [facility] ([facility]) 6'1" Body mass index (BMI) [Ratio] 32.1 kg/m2 32.1 k g/m2 [facility] ([facility]) Systolic blood pressure 110 mm[Hg] 110 mm[Hg] M EDENT ([facility] ) Diastolic blood pressure 80 mm[Hg] 80 mm[Hg] [facility] ([facility] ) Heart rate 64 /min 64 /min [facility] ([facility] ) Respiratory rate 16 /min 16 /min [facility] ( [facility] ) Systolic blood pressure 126 mm[Hg] 126 mm[Hg] M EDENT ([facility]) sittting Heart rate 64 /min 64 /min [facility] ([facility]) Regular Body weight 246.00 [lb_av] 246.00 [lb_av] MEDEN T ([facility]) Body height 73 [in_i] 73 [in_i] [facility] ([facility]) 6'1" Body mass index (BMI) [Ratio] 32.5 kg/m2 32.5 k g/m2 [facility] ([facility]) Respiratory rate 16 /min 16 /min [facility] ( [facility]) Systolic blood pressure 126 mm[Hg] 126 mm[Hg] M EDENT ([facility]) sitting, large cuff Diastolic blood pressure 66 mm[Hg] 66 mm[Hg] [facility] ([facility]) sitting, large cuff Diastolic blood pressure 70 mm[Hg] 70 mm[Hg] [facility] ([facility]) sittting Systolic blood pressure 106 mm[Hg] 106 mm[Hg] M EDENT ([facility] ) Diastolic blood pressure 70 mm[Hg] 70 mm[Hg] [facility] ([facility] ) Heart rate 76 /min 76 /min [facility] ([facility] ) Respiratory rate 20 /min 20 /min [facility] ( [facility] ) Respiratory rate 16 /min 16 /min [facility] ( [facility]) Systolic blood pressure 128 mm[Hg] 128 mm[Hg] M EDENT ([facility]) sitting, large cuff Diastolic blood pressure 62 mm[Hg] 62 mm[Hg] [facility] ([facility]) sitting, large cuff Systolic blood pressure 132 mm[Hg] 132 mm[Hg] M EDENT ([facility]) sitting Body mass index (BMI) [Ratio] 32.6 kg/m2 32.6 k g/m2 [facility] ([facility]) Heart rate 92 /min 92 /min [facility] ([facility]) Regular Body weight 247.00 [lb_av] 247.00 [lb_av] MEDEN T ([facility]) Body height 73 [in_i] 73 [in_i] [facility]) 6'1" Diastolic blood pressure 62 mm[Hg] 62 mm[Hg] [facility] ([facility]) sitting Systolic blood pressure 130 mm[Hg] 130 mm[Hg] M EDENT ([facility], ) Diastolic blood pressure 70 mm[Hg] 70 mm[Hg] MEDENT ([facility], ) Heart rate 64 /min 64 /min MEDENT ([facility], ) Respiratory rate 16 /min 16 /min MEDENT ( [facility], ) Body temperature 97.6 [degF] 97.6 [degF] MEDENT ([facility]) Systolic blood pressure 132 mm[Hg] 132 mm[Hg] M EDENT ([facility]) Diastolic blood pressure 76 mm[Hg] 76 mm[Hg] ADY ([facility])
--- OUTSIDE RECORDS SUMMARY | 2021-05-05 17:30 | CCD | Continuity of Care Document ---
Author Author Isaias ORTA P.A.-C. Organization Unknown Address [address] [place] [id number] Phone [phone] Care Team Providers Care Stone [employer]ter [employer] Name Role Phone Jaylon Hoover AUTM [phone] Problems Active Problems Provider Date Ischemic stroke [...] Available Vital Signs Date Vital Result Comment 12/18/2020 8:59am BP Systolic 106 mmHg BP Diastolic 70 mmHg Heart Rate 76 /min Respiratory Rate 20 /min 04/08/2020 6:54am BP Systolic 130 mmHg BP Diastolic 70 mmHg Heart Rate 64 /min Respiratory Rate 16 /min Results Description No Information Available Procedures Date Code Description Status 2021 79032 Office/Outpatient Established Mo d MDM 30-39 Min Completed 12/18/2020 63628 Office/Outpatient Established Mo d MDM 30-39 Min Completed Medical Devices Description No Information Available Encounters Type Date Location Provider Dx Diagnosis Office Visit 2021 2:45p Main [place] - [place] Lisandra johnson P.A.-C. 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 2021 R42 Dizziness and giddiness Lisandra Orta P.A.-C. 2021 R26.81 Unsteadiness on feet Shari Valladares.A.-C. 2021 G47.33 Obstructive sleep apnea (adult) (pediatric) Lisandra Orta P.A.-C. 12/18/2020 R42 Dizziness and giddiness Lisandra Orta P.A.-C. 12/18/2020 R26.81 Unsteadiness on feet Lisandra walker P.A.-C. 12/18/2020 G93.0 Cerebral cysts Lisandra Orta P.A.-C. 12/18/2020 I63.89 Other cerebral infarction Lisandra Orta P.A.-C. 12/18/2020 I65.09 Occlusion and stenosis of unspec ified vertebral artery Shari Hernández.A.-C. 12/18/2020 G47.33 Obstructive sleep apnea (adult) (pediatric) Lisandra Orta P.A.-C. Plan of Treatment No Information Available Functional Status Description No Information Available Mental Status Description No Information Available Referrals Description No Information Available"
--- OUTSIDE RECORDS SUMMARY | 2021-05-05 17:30 | CCD | Continuity of Care Document ---
Author Author [facility] Organization Unknown Address [address] [place] [address], [place] [address] Phone Unavailable Care Team Providers Care Job Order Clerk Name Role Phone Lianne Kimball MD AUTM [phone] Jaylon Hoover MD AUTM [phone] Adrianne Grove AUTM [phone] [facility] AUTM Problems Active Problems Provider Date Hyperlipidemia Enmanuel [...] drop both eyes every night at bedtime [facility] 06/28/2020 Carvedilol 6.25mg [...] Information Available Procedures Date Code Description Status 03/09/2021 28244 Implantable Loop Recorder System , Review And Report Completed 02/04/2021 31824 Implantable Loop Recorder System , Review And Report Completed 01/01/2021 49072 Implantable Loop Recorder System , Review And Report Completed 12/29/2020 50181 Office/Outpatient Established Mo d MDM 30-39 Min Completed 12/29/2020 49277 ECG 12-Lead Completed 11/30/2020 99890 Implantable Loop Recorder System , Review And Report Completed 10/29/2020 28710 Implantable Loop Recorder System , Review And Report Completed 09/23/2020 42115 Implantable Loop Recorder System , Review And [...] lt) (pediatric) Assessments Date Code Description Provider 03/09/2021 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 [facility] 02/04/2021 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 [facility] 01/01/2021 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 [facility] 12/29/2020 I48.0 Paroxysmal atrial fibrillation Destiney Farias PA-C 12/29/2020 I10 Essential (primary) hypertension Apryl Farias PA-C 12/29/2020 I63.9 Cerebral infarction, unspecified ANGELIQUE ChanC 12/29/2020 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 ANGELIQUE ChanC 12/29/2020 E78.00 Pure hypercholesterolemia, unspe cified WILLI Chan-C 12/29/2020 G47.33 Obstructive sleep apnea (adult) (pediatric) Apryl Farias PA-C 11/30/2020 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
--- OUTSIDE RECORDS SUMMARY | 2021-05-05 17:30 | CCD | Continuity of Care Document ---
Author Author [facility] Organization Unknown Address [address] [place] [address], [place] [address] Phone Unavailable Care Team Providers Care Casey Saw Operator Name Role Phone Lianne Kimball MD AUTM [phone] Jaylon Hoover MD AUTM [phone] Adrianne Grove AUTM [phone] [facility] AUTM Problems Active Problems [...] Dizziness Allergies, Adverse Reactions, Alerts Active Allergies Reaction Severity Comments Date Tetanus 03/13/2018 Risperdal 03/13/2018 Gluten 03/13/2018 Medications Active Medications SIG Qnty Indications Ordering Provide r Date Potassium Chloride Audra ER 10Meq Tablets ER 1 by mouth every day Unknown 021 Latanoprost 0.005% Solution 1 drop both eyes every night at bedtime [facility] 06/28/2020 Carvedilol 6.25mg Tablets [...] Tablets 1 by mouth daily 60tabs Jon Llmaas MD 03/12/[address] 1 [...] Information Available Procedures Date Code Description Status 02/04/2021 53446 Implantable Loop Recorder System , Review And Report Completed 01/01/2021 61705 Implantable Loop Recorder System , Review And Report Completed 12/29/2020 48190 Office/Outpatient Established Mo d MDM 30-39 Min Completed 12/29/2020 80028 ECG 12-Lead Completed 11/30/2020 57883 Implantable Loop Recorder System , Review And Report Completed 10/29/2020 14925 Implantable Loop Recorder System , Review And Report Completed 09/23/2020 08375 Implantable Loop Recorder System , Review And Report Completed 08/19/2020 02266 Implantable Loop Recorder System , Review And [...] lt) (pediatric) Assessments Date Code Description Provider 02/04/2021 Z95.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 of other cardiac implan [...] cardiac implan ts and grafts [facility] 08/19/2020 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 Request last labs from [place]. Functional Status Functional Condition Comment Date Status Requires assistance with ambulating with cane Active Requires assistance with dressing Active Requires assistance with bathing reaching shower head Active Independent with feeding Active Independent with grooming Active Independent with standing Active Independent with toileting Activ e Mental Status Description No Information Available Referrals Description No Information Available
[2021-05-05 18:07] VITALS: BP 178/86
[2021-05-05 18:16] LABS: BASO # 0.1 10^3/uL (0.0-0.2); BASO % 1.1 % (0.0-1.0); EOS # 0.2 10^3/uL (0.0-0.5); EOS % 4.1 % (0.0-3.0); HEMATOCRIT 36.6 % (42.0-52.0); HEMOGLOBIN 11.9 g/dl (13.5-17.5); LYMPH # 1.9 10^3/uL (1.5-5.0); LYMPH % 35.2 % (24.0-44.0); MEAN CORPUSCULAR HEMOGLOBIN 32.7 pg (27.0-33.0); MEAN CORPUSCULAR HGB CONC 32.5 g/dl (32.0-36.5); MEAN CORPUSCULAR VOLUME 100.5 fl (80.0-96.0); MONO # 0.4 10^3/uL (0.0-0.8); MONO % 7.2 % (2.0-8.0); NEUTROPHILS # 2.8 10^3/uL (1.5-8.5); NEUTROPHILS % 52.2 % (36.0-66.0); PLATELET COUNT, AUTOMATED 124 10^3/uL (150-450); RED BLOOD COUNT 3.64 10^6/uL (4.30-6.10); WHITE BLOOD COUNT 5.3 10^3/uL (4.0-10.0)
--- OUTSIDE RECORDS SUMMARY | 2021-05-05 18:16 | CCD ---
Author Author [facility] Organization [facility] Address Unknown Phone Unavailable Care Team Providers Care Band Singer Name Role Phone JuliannewCiara PA Unavailable Unavailable Symenow, Ciara Pink PA Unavailable Unavailable Symenow, Ciara Pink PA Unavailable Unavailable Symenow, Ciara Pink PA Unavailable Unavailable Symenow, Ciraa Pink PA Unavailable Unavailable Symenow, Ciara Pink [...] Unavailable Trickey, J Lisandra PA Unavailable Unavailable Smith, Erma MONUMENT LETTERER Unavailable Unavailable Smith, Erma MONUMENT LETTERER Unavailable Unavailable Smith, Erma MONUMENT LETTERER Unavailable Unavailable Smith, Erma MONUMENT LETTERER Unavailable Unavailable Smith, Erma MONUMENT LETTERER Unavailable Unavailable Smith, Erma MONUMENT LETTERER Unavailable Unavailable Smith, Erma MONUMENT LETTERER Unavailable Unavailable Smith, Erma MONUMENT LETTERER Unavailable Unavailable Smith, Erma MONUMENT LETTERER Unavailable Unavailable Smith, Erma MONUMENT LETTERER Unavailable Unavailable Smith, Erma MONUMENT LETTERER Unavailable Unavailable Smith, Erma MONUMENT LETTERER Unavailable Unavailable Smith, Erma MONUMENT LETTERER Unavailable Unavailable Smith, Erma MONUMENT LETTERER Unavailable Unavailable Smith, Erma MONUMENT LETTERER Unavailable Unavailable Smith, Erma MONUMENT LETTERER Unavailable Unavailable Smith, Erma MONUMENT LETTERER Unavailable Unavailable Smith, Erma MONUMENT LETTERER Unavailable Unavailable Smith, Erma MONUMENT LETTERER Unavailable Unavailable Smith, Erma MONUMENT LETTERER Unavailable Unavailable Smith, Erma MONUMENT LETTERER Unavailable Unavailable Smith, Erma MONUMENT LETTERER Unavailable Unavailable Smith, Erma MONUMENT LETTERER Unavailable Unavailable Smith, Erma MONUMENT LETTERER Unavailable Unavailable Smith, Erma MONUMENT LETTERER Unavailable Unavailable Smith, Erma MONUMENT LETTERER Unavailable Unavailable Smith, Erma MONUMENT LETTERER Unavailable Unavailable Smith, Erma MONUMENT LETTERER Unavailable Unavailable Smith, Erma MONUMENT LETTERER Unavailable Unavailable Smith, Erma MONUMENT LETTERER Unavailable Unavailable Smith, Donna Silver MONUMENT LETTERER Unavailable Unavailable Smith, Donna Silver MONUMENT LETTERER Unavailable Unavailable Smith, Donna Silver MONUMENT LETTERER Unavailable Unavailable Smith, Donna Silver MONUMENT LETTERER Unavailable Unavailable Smith, Donna Silver MONUMENT LETTERER Unavailable Unavailable Smith, Donna Silver MONUMENT LETTERER Unavailable Unavailable ANTECOL, Lorie ZAIDI MD Unavailable [...] is protected by Article 27-F of the [facility] Public Health law. If you continue you may have access to information: Regarding HIV / AIDS; Provided by facilities licensed or operated by the [facility] Office of Mental Health; or Provided by the [facility] Office for People With Developmental Disabilities. If such information is present, then the following [facility] mandated warning applies: This information [...] law may result in a fine or intermediate sentence or both. A general authorization for the release of medical or other information is NOT sufficient authorization for further disc losure. Family History Family Member Name Family Member Gender Family Member Status Date o f Status Description Data Source(s) Unknown Male Problem [facility] ([facility]) Unknown Female Problem [facility] ([facility]) Encounters Encounter Providers Location Date Indications Data Source(s ) Outpatient Attender: DYAN MEREDITH MD Main Office 04/29/2021 12:15:00 PM EDT MED[facility] ([facility]) Outpatient Attender: Adrianne Aguirre MONUMENT LETTERER Main Office 03/30/2021 12:30:00 PM EDT [facility] Outpatient Attender: Lisandra MÁRQUEZ [place] 02:45:00 PM EDT MED[facility] ([facility]) Outpatient Attender: Apryl MÁRQUEZ Main Office 12/29/2020 01:00:00 PM EDT MED[facility] ([facility]) Outpatient Attender: Lisandra MÁRQUEZ Main office - [place] 12/18/2020 11:30:00 AM EDT MED[facility] ([facility]) Outpatient Attender: Lisandra MÁRQUEZ Main office - [place] 09/15/2020 11:00:00 AM EST MEDENT ([facility]) Outpatient Attender: Lisandra MÁRQUEZ Main office - [facility] n 07/08/2020 12:45:00 PM EST MEDENT ([facility]) Outpatient Attender: Apryl MÁRQUEZ Main Office 06/29/2020 07:15:00 AM EST MED[facility] ([facility]) Outpatient Attender: DYAN MEREDITH MD Main Office 05/26/2020 10:00:00 AM EST MED[facility] ([facility]) Outpatient Attender: Lisandra MÁRQUEZ Main office - [facility] n 04/08/2020 11:45:00 AM EDT MED[facility] ([facility]) Medications Medication Brand Name Start Date Product Form Dose Route Admi nistrative Instructions Pharmacy Instructions Status Indications Reaction Description Data Source(s) 240 mcg/0.7 mL 04/21/2021 12:00:00 AM EDT syringe 0 INJECT DIRECTED INJECT DIRECTED SOLD: 04/21/2021 [facility] Potassium 03/30/2021 12:00:00 AM EDT active MED[facility] ([facility]) Potassium Chloride 10 MEQ Extended Release Oral Tablet Potassium Chloride [facility] 12/28/2020 12:00:00 AM EDT ORAL active MED[facility] ([facility]) latanoprost 0.05 MG/ML Ophthalmic Solution Latanoprost 06/28/2020 12:00:00 AM EST OPHTHALMIC active [facility] ([facility]) carvedilol 6.25 MG Oral Tablet Carvedilol 06/28/2020 12:00:00 AM EST ORAL active [facility] ([facility]) Atenolol 50 MG Oral Tablet Atenolol 05/26/2020 12:00:00 AM EST ORAL completed [facility] ([facility]) carvedilol 6.25 MG Oral Tablet Carvedilol 05/25/2020 12:00:00 AM EST ORAL completed MED[facility] ([facility]) Clobetasol Propionate 0.5 MG/ML Topical Cream Clobetasol Pro pionate 03/30/2020 12:00:00 AM EDT active M EDENT ([facility]) carvedilol 6.25 MG Oral Tablet Carvedilol 12/04/2019 12:00:00 AM EDT ORAL completed [facility] Insurance Providers Payer name Policy type / Coverage type Policy ID Covered republican ID Covered republican's relationship to corbett Policy Corbett Plan Information MEDICARE A [id number] Self [id number] A Medicare (Part B) Medicare Primary [id number] Self [id number] Medicare (Part B) Medicare Primary [id number] Self [id number] Medicare (Part B) Medicare Primary [id number] Self [id number] Medicare (Part B) Medicare Primary [id number] Self [id number] Medicare (Part B) Medicare Primary [id number] Self [id number] Medicare (Part B) Medicare Primary [id number] Self [id number] MEDICARE [id number] SP [id number] A Medicare (Part B) Medicare Primary [id number] Self [id number] AARP U [id number] Self [id number] AARP U [id number] Self [id number] MVP (pr) Commercial [id number] Family Dependent Medicare [place] Primary [id number] Self [id number] A [facility] [id number] SP [id number] MEDICARE [id number] SP [id number] AARP HEALTH CARE OPTIONS [id number] SP [id number] AARP HE[employer] CARE OPTIONS [id number] SP [id number] [employer] Options Medigap Part B [id number] Self [id number] [employer] Options Medigap Part B [id number] Self [id number] [employer] Options Medigap Part B [id number] Self [id number] [employer] Options Medigap Part B [id number] Self [id number] [employer] Options Medigap Part B [id number] Self [id number] [employer] Options Medigap Part B [id number] Self [id number] [employer] Options Medigap Part B [id number] Self [id number] Problems, Conditions, and Diagnoses Code Display Name Description Problem Type Effective Dates Data Source(s) I49.5 Sinus node dysfunction Sinus node dysfunction Problem 04/29/2021 12:00:00 AM EDT MED[facility] ([facility]) G47.33 Obstructive sleep apnea syndrome Obstructive sle ep apnea syndrome Problem 06/29/2020 12:00:00 AM EST [facility] Surgeries/Procedures Procedure Description Date Indications Data Source(s) Arterial Pressure Waveform Analysis For Assessment Of Centra l Art 04/29/2021 12:00:00 AM EDT MED[facility] ([facility]) OFFICE OUTPATIENT VISIT 15 MINUTES 04/29/2021 12:00:00 AM EDT MED[facility] ([facility]) Implantable Loop Recorder System, Review And Report 04/07/2021 12:00:00 AM EDT MED[facility] ([facility]) OFFICE OUTPATIENT VISIT 25 MINUTES 03/30/2021 12:00:00 AM EDT MEDENT ([facility]) OFFICE OUTPATIENT VISIT 25 MINUTES 2021 12:00:00 AM EDT MED[facility] ([facility] ) Implantable Loop Recorder System, Review And Report 03/09/2021 12:00:00 AM EDT MED[facility] ([facility]) Implantable Loop Recorder System, Review And Report 02/04/2021 12:00:00 AM EDT MED[facility] ([facility]) Implantable Loop Recorder System, Review And Report 01/01/2021 12:00:00 AM EDT MED[facility] ([facility]) ECG ROUTINE ECG W/LEAST 12 LDS W/I&R 12/29/2020 12:00: 00 AM EDT MED[facility] ([facility]) OFFICE OUTPATIENT VISIT 25 MINUTES 12/29/2020 12:00:00 AM EDT MED[facility] ([facility]) OFFICE OUTPATIENT VISIT 25 MINUTES 12/18/2020 12:00:00 AM EDT MED[facility] ([facility] ) Implantable Loop Recorder System, Review And Report 11/30/2020 12:00:00 AM EDT MED[facility] ([facility]) Implantable Loop Recorder System, Review And Report 10/29/2020 12:00:00 AM EDT MED[facility] ([facility]) Implantable Loop Recorder System, Review And Report 09/23/2020 12:00:00 AM EDT [facility] ([facility]) Implantable Loop Recorder System, Review And Report 08/19/2020 12:00:00 AM EST MED[facility] ([facility]) Implantable Loop Recorder System, Review And Report 07/17/2020 12:00:00 AM EST [facility] ([facility]) ECG ROUTINE ECG W/LEAST 12 LDS W/I&R 06/29/2020 12:00: 00 AM EST [facility] ([facility]) Implantable Loop Recorder System, Review And Report 06/12/2020 12:00:00 AM EST [facility] ([facility]) Magnetic Resonance Angiogtaphy Head W/O Contrast Material(S) 05/16/2020 12:00:00 AM EST [facility] ([facility]) Magnetic Resonance Angiogtaphy Head W/O Contrast Material(S) 05/16/2020 12:00:00 AM EST [facility] ([facility]) Magnetic Resonance Angiography Neck W/O Contrast Materials 05/16/2020 12:00:00 AM EST [facility] ([facility]) Magnetic Resonance Angiography Neck W/O Contrast Materials 05/16/2020 12:00:00 AM EST [facility] ([facility]) MRI BRAIN BRAIN STEM W/O CONTRAST MATERIAL 05/16/2020 12:00:00 AM EST MED[facility] ([facility] ) MRI BRAIN BRAIN STEM W/O CONTRAST MATERIAL 05/16/2020 12:00:00 AM EST MED[facility] ([facility] ) Implantable Loop Recorder System, Review And Report 05/12/2020 12:00:00 AM EST MED[facility] ([facility]) Implantable Loop Recorder System, Review And Report 04/07/2020 12:00:00 AM EDT MED[facility] ([facility]) Results No Information Social History Code Duration Value Status Description Data Source(s ) Smoking 04/29/2021 12:00:00 AM EDT Patient is a former smoker completed Patient is a former smoker MED[facility] ([facility]) Vital Signs ID Date Data Source UNK Name Value Range Interpretation Code Description Data Source(s) Body height 73 [in_i] 73 [in_i] [facility] ([facility]) 6'1" Body mass index (BMI) [Ratio] 32.1 kg/m2 32.1 k g/m2 [facility] ([facility]) Heart rate 78 /min 78 /min [facility] ([facility]) Systolic blood pressure--sitting 154 mm[Hg] 154 mm[Hg] [facility] ([facility]) CBP, large cuff/Ra Diastolic blood pressure--sitting 74 mm[Hg] 74 mm[Hg] [facility] ([facility]) CBP, large cuff/Ra Body weight 243.00 [lb_av] 243.00 [lb_av] MEDEN T ([facility]) Systolic blood pressure 155 mm[Hg] 155 mm[Hg] M EDENT ([facility]) Diastolic blood pressure 84 mm[Hg] 84 mm[Hg] [facility] ([facility]) Body weight 243.00 [lb_av] 243.00 [lb_av] MEDEN T ([facility]) Body height 73 [in_i] 73 [in_i] MED[facility] ([facility]) 6'1" Body mass index (BMI) [Ratio] 32.1 kg/m2 32.1 k g/m2 MED[facility] ([facility]) Systolic blood pressure 110 mm[Hg] 110 mm[Hg] M EDENT ([facility] ) Diastolic blood pressure 80 mm[Hg] 80 mm[Hg] MED[facility] ([facility] ) Heart rate 64 /min 64 /min MED[facility] ([facility] ) Respiratory rate 16 /min 16 /min MED[facility] ( [facility] ) Systolic blood pressure 126 mm[Hg] 126 mm[Hg] M EDENT ([facility]) sittting Heart rate 64 /min 64 /min [facility] ([facility]) Regular Body weight 246.00 [lb_av] 246.00 [lb_av] MEDEN T ([facility]) Body height 73 [in_i] 73 [in_i] [facility] 6'1" Body mass index (BMI) [Ratio] 32.5 kg/m2 32.5 k g/m2 MED[facility] ([facility]) Respiratory rate 16 /min 16 /min MED[facility] ( [facility]) Systolic blood pressure 126 mm[Hg] 126 mm[Hg] M EDENT ([facility]) sitting, large cuff Diastolic blood pressure 66 mm[Hg] 66 mm[Hg] MED[facility] ([facility]) sitting, large cuff Diastolic blood pressure 70 mm[Hg] 70 mm[Hg] MED[facility] ([facility]) sittting Systolic blood pressure 106 mm[Hg] 106 mm[Hg] M EDENT ([facility] ) Diastolic blood pressure 70 mm[Hg] 70 mm[Hg] MED[facility] ([facility] ) Heart rate 76 /min 76 /min MED[facility] ([facility] ) Respiratory rate 20 /min 20 /min MED[facility] ( [facility] ) Respiratory rate 16 /min 16 /min MED[facility] ( [facility]) Systolic blood pressure 128 mm[Hg] 128 mm[Hg] M EDENT ([facility]) sitting, large cuff Diastolic blood pressure 62 mm[Hg] 62 mm[Hg] MED[facility] ([facility]) sitting, large cuff Systolic blood pressure 132 mm[Hg] 132 mm[Hg] M EDENT ([facility]) sitting Body mass index (BMI) [Ratio] 32.6 kg/m2 32.6 k g/m2 [facility] ([facility]) Heart rate 92 /min 92 /min [facility] ([facility]) Regular Body weight 247.00 [lb_av] 247.00 [lb_av] MEDEN T ([facility]) Body height 73 [in_i] 73 [in_i] [facility] ([facility]) 6'1" Diastolic blood pressure 62 mm[Hg] 62 mm[Hg] MED[facility] ([facility]) sitting Systolic blood pressure 130 mm[Hg] 130 mm[Hg] M EDENT ([facility] ) Diastolic blood pressure 70 mm[Hg] 70 mm[Hg] MED[facility] ([facility] ) Heart rate 64 /min 64 /min [facility] ([facility] ) Respiratory rate 16 /min 16 /min MED[facility] ( [facility] ) Body temperature 97.6 [degF] 97.6 [degF] [facility] ([facility]) Systolic blood pressure 132 mm[Hg] 132 mm[Hg] M ADDISON ([facility]) Diastolic blood pressure 76 mm[Hg] 76 mm[Hg] ADY ([facility])
[2021-05-05 18:30] LABS: PROTHROMBIN TIME 13.6 SECONDS (12.7-14.5)
[2021-05-05 18:31] LABS: PARTIAL THROMBOPLASTIN TIME 28.1 SECONDS (25.9-37.0)
[2021-05-05 18:42] LABS: CK-MB VALUE MASS 2.9 NG/ML (<3.6); MB/CK RELATIVE INDEX 4.14 (< OR =4); TROPONIN I 0.04 NG/ML (< 0.10)
--- NOTE | 2021-05-05 18:44 | REP ---
INDICATION: CVA. COMPARISON: 06/14/2010. TECHNIQUE: Single portable AP view of the chest was performed. FINDINGS: There is no acute infiltrate or pulmonary edema. Lungs are clear. The heart is not significantly enlarged. The mediastinal silhouette is unremarkable. The visualized osseous structures are intact. IMPRESSION: No acute pulmonary disease. <Electronically signed by Tres Jimenez > 05/05/21 [id number]
[2021-05-05 19:25] LABS: RSV AMPLIFICATION NEGATIVE (NEGATIVE)
[2021-05-05] MEDS ORDERED: ACETAMINOPHEN TAB 650MG DOSE (2X325MG) PO PRN (19:35)
[2021-05-05] MEDS ORDERED: MOM 30ML SUSPENSION UDC PO PRN (19:35)
[2021-05-05] MEDS ORDERED: MAALOX 30 ML SUSP *UDC PO PRN (19:35)
--- NOTE | 2021-05-05 19:35 | HPEPDOC ---
[facility] Medical History & Physical Date of Admission May 05, 2021 Date of Service: May 05, 2021 Attending Physician: KARI BOSE MD History and Physical CHIEF COMPLAINT: [71 y/o male presents to ED after neurology appointment] HISTORY OF PRESENT ILLNESS: [This is a 71 y/o male with a pmh of multiple cva, a-fib, htn, copd, chato on cpap who presents to our ED after being told by his neurologist to report there after a routine MRI/MRA scan. Per patient and his , he is to undergo pacemaker placement tomorrow with Dr. Washington, cardiology, and thus was taken off of his plavix and eliquis 2 days ago. Patient states then went to his neurologist who sent him for routine mri/mra as he would not be able to undergo further mri scans after pacemaker placement. MRA taken today showing "3mm focal acute/subacute infarct of left superior frontal gyral cortex." Patient tells me that he himself feels fine and only complains of some worsening vision. Patient tells me that he has poor vision in the first place, but describes to me that he has been finding it harder to focus on objects and mostly "sees shadows." Patient states that he has no headache, new weakness, syncope, paresthesias, slurred speech. Patient also denying recent illness, fevers, chills, chest pain, sob, wheezing, abd pain, n/v/d/c, pedal edema.] PAST MEDICAL HISTORY: 1. [See HPI PAST SURGICAL HISTORY: 1. [Loop recorder placement]. 2. [Appendectomy]. SOCIAL HISTORY: Tobacco use:[Former] ETOH: [Occasional] Illicit drug use: [Denies] FAMILY HISTORY: reviewed - none pertinent ALLERGIES: Please see below. REVIEW OF SYSTEMS: CONSTITUTIONAL: [Denies fevers, chills]. HEENT: [Admits to blurry vision. Denies uri type sx]. CARDIOVASCULAR: [Denies chest pain, palpitations]. RESPIRATORY: [Denies sob, cough]. GASTROINTESTINAL: [Denies abd pain, n/v/d/c]. GENITOURINARY: [Denies dysuria]. SKIN: [Denies rash]. MUSCULOSKELETAL: [Denies acute joint/back pain]. NEUROLOGICAL: [Denies syncope, paresthesias]. ENDOCRINE: [Denies hx of dm]. HEMATOLOGIC/LYMPHATIC: [Denies hx of vte]. HOME MEDICATIONS: Please see below. PHYSICAL EXAMINATION: VITAL SIGNS: Please see below. GENERAL APPEARANCE: [This is a 71 y/o male who is alert and oriented to all questioning. He does not appear to be in any acute distress]. HEENT: [No mass or lesion. EOMI. No scleral icterus. Nares patent. Oral mucosa moist]. CARDIOVASCULAR: [Regular rate, irregular rhythm. No murmurs, rubs, gallops]. LUNGS: [Good air flow b/l. No wheezing, rales, rhonchi]. ABDOMEN: [Soft, nontender]. MUSCULOSKELETAL: [No joint deformity noted]. EXTREMITIES: [No pedal edema appreciated. Pulses intact. No overlying skin changes]. NEUROLOGICAL: [Speech clear. A+Ox3. No focal deficits]. PSYCHIATRIC: [Mood and affect appear appropriate]. LABORATORY DATA: See below. IMAGING: [CXR: FINDINGS: There is no acute infiltrate or pulmonary edema. Lungs are clear. The heart is not significantly enlarged. The mediastinal silhouette is unremarkable. The visualized osseous structures are intact. IMPRESSION: No acute pulmonary disease. MRI/MRA reports from scans performed today are not readily available to me. Please refer to my quotation of most notable finding as I have stated it in HPI.] MICROBIOLOGY: Please see below. ASSESSMENT: [This is a 71 y/o male with a pmh of multiple cva, a-fib, htn, copd, chato on cpap who presents to our ED after being told by his neurologist to report there after a routine MRI/MRA scan. MRA taken today showing "3mm focal acute/subacute infarct of left superior frontal gyral cortex." Patient tells me that he himself feels fine and only complains of some worsening vision.]. . PLAN: 1. CVA - Imaging performed today showing new small subacute infarct - With unknown last known normal and imaging performed much earlier in the day, patient was outside window for tpa - Patient's only symptom at this time is increased blurry vision - holding plavix at this time for procedure tomorrow - will keep pt on tele overnight - continue atorvastatin - admit to med surg for tx 2. A-fib - likely the cause of pt's many strokes - pt will still receive pacer placement tomorrow with Dr. Washington - sherin henning - pt rate controlled at this time - npo after midnight - continue carvedilol 3. HTN - continue lisinopril 4. GERD - continue omprazole 5. BPH - continue alpha zoila, oxybutynin DVT prophylaxis - mechanical pre-op]. Vital Signs Vital Signs Date Time Temp Pulse Resp B/P (MAP) Pulse Ox O2 Delivery O2 Flow Rate FiO2 05/05/21 19:15 62 18 178/83 (114) 95 Room Air 05/05/21 17:16 97.5 Laboratory Data Labs 24H Laboratory Tests 2 05/05/21 17:24: Immature Granulocyte % (Auto) 0.2, Neutrophils (%) (Auto) 52.2, Lymphocytes (%) (Auto) 35.2, Monocytes (%) (Auto) 7.2, Eosinophils (%) (Auto) 4.1H, Basophils (%) (Auto) 1.1H, Neutrophils # (Auto) 2.8, Lymphocytes # (Auto) 1.9, Monocytes # (Auto) 0.4, Eosinophils # (Auto) 0.2, Basophils # (Auto) 0.1, Nucleated Red Blood Cells % (auto) 0.0, Prothrombin Time 13.6, Prothromb Time International Ratio 1.00, Activated Partial Thromboplast Time 28.1, Total Creatine Kinase 70, Creatine Kinase MB 2.9, Creatine Kinase MB Relative Index 4.14H, Troponin I 0.04 05/05/21 18:06: POC Glucose (Misc Panel) 90, POC Sodium (Misc Panel) 143, POC Potassium (Misc Panel) 4.1, POC Chloride (Misc Panel) 105, POC Total CO2 (Misc Panel) 26.0, POC Blood Urea Nitrogen (Misc Panel 14, POC Ionized Calcium (Misc Panel) 5.0, POC Creatinine (Misc Panel) 1.2, POC Hematocrit (Misc Panel) 37.0L 05/05/21 18:23: Coronavirus (COVID-19)(PCR) NEGATIVE, Influenza Type A (RT-PCR) NEGATIVE, Influenza Type B (RT-PCR) NEGATIVE, Respiratory Syncytial Virus (PCR) NEGATIVE CBC/BMP Laboratory Tests 05/05/21 17:24 Home Medications Scheduled Alfuzosin HCl (Alfuzosin HCl ER) 10 Mg Tab.er.24h, 10 MG PO DAILY Apixaban (Eliquis) 5 Mg Tablet, 5 MG PO BID Atorvastatin Calcium (Atorvastatin Calcium) 80 Mg Tab, 80 MG PO QHS Carvedilol (Coreg) 6.25 Mg Tablet, 6.25 MG PO BID BP UNDER 150 Clopidogrel Bisulfate (Clopidogrel) 75 Mg Tab, 75 MG PO DAILY Dapsone (Dapsone) 25 Mg Tab, 25 MG PO BID Ferrous Gluconate (Ferrous Gluconate) 324 Mg Tablet, 324 MG PO BID Fluticasone Propionate (Flonase Allergy Relief) 50 Mcg/Act Spr, 1 SPRAY NARES DAILY Lisinopril (Lisinopril) 20 Mg Tab, 20 MG PO DAILY Multivitamin (Multivitamin) 1 Each Tablet, 1 EACH PO BID Omeprazole (Omeprazole) 20 Mg Cap, 20 MG PO DAILY Oxybutynin Chloride (Oxybutynin Chloride ER) 5 Mg Tab.er.24, 5 MG PO BID Potassium Chloride (K-Tab ER) 10 Meq Tablet.er, 10 MEQ PO BID Sildenafil Citrate (Viagra) 50 Mg Tab, 50 MG PO ASDIRECTED for erectile dysfunction 1 hour before sexual activity Allergies Coded Allergies: Gluten Flour (Verified Allergy, Unknown, 05/04/21) Tetanus Vaccines and Toxoid (Verified Allergy, Unknown, 05/04/21) risperidone (Verified Adverse Reaction, Mild, gyencomastia, 05/04/21) A-FIB/CHADSVASC A-FIB History Current/History of A-Fib/PAF?: Yes Current PO Anticoag Therapy: No (procedure in the am) LAWANDA MATTHEWS May 05, 2021 19:35
[2021-05-05] MEDS ORDERED: HOME MED LIST COMPLETE! XX SCH (19:50)
--- OUTSIDE RECORDS SUMMARY | 2021-05-05 19:57 | CCD ---
Author Author [facility] Organization [facility] Address Unknown Phone Unavailable Care Team Providers Care Filbert Grower Name Role Phone JuliannewCiara PA Unavailable Unavailable [...] Unavailable Trickey, J Lisandra PA Unavailable Unavailable Dewitt, Erma TIRE CLASSIFIER Unavailable Unavailable Dewitt, Erma TIRE CLASSIFIER Unavailable Unavailable Dewitt, Erma TIRE CLASSIFIER Unavailable Unavailable Dewitt, Erma TIRE CLASSIFIER Unavailable Unavailable Dewitt, Erma TIRE CLASSIFIER Unavailable Unavailable Dewitt, Erma TIRE CLASSIFIER Unavailable Unavailable Dewitt, Erma TIRE CLASSIFIER Unavailable Unavailable Dewitt, Erma TIRE CLASSIFIER Unavailable Unavailable Dewitt, Erma TIRE CLASSIFIER Unavailable Unavailable Dewitt, Erma TIRE CLASSIFIER Unavailable Unavailable Dewitt, Erma TIRE CLASSIFIER Unavailable Unavailable Dewitt, Erma TIRE CLASSIFIER Unavailable Unavailable Dewitt, Erma TIRE CLASSIFIER Unavailable Unavailable Dewitt, Erma TIRE CLASSIFIER Unavailable Unavailable Dewitt, Erma TIRE CLASSIFIER Unavailable Unavailable Dewitt, Erma TIRE CLASSIFIER Unavailable Unavailable Dewitt, Erma TIRE CLASSIFIER Unavailable Unavailable Dewitt, Erma TIRE CLASSIFIER Unavailable Unavailable Dewitt, Erma TIRE CLASSIFIER Unavailable Unavailable Dewitt, Erma TIRE CLASSIFIER Unavailable Unavailable Dewitt, Erma TIRE CLASSIFIER Unavailable Unavailable Dewitt, Erma TIRE CLASSIFIER Unavailable Unavailable Dewitt, Erma TIRE CLASSIFIER Unavailable Unavailable Dewitt, Erma TIRE CLASSIFIER Unavailable Unavailable Dewitt, Erma TIRE CLASSIFIER Unavailable Unavailable Dewitt, Erma TIRE CLASSIFIER Unavailable Unavailable Dewitt, Erma TIRE CLASSIFIER Unavailable Unavailable Dewitt, Erma TIRE CLASSIFIER Unavailable Unavailable Dewitt, Erma TIRE CLASSIFIER Unavailable Unavailable Dewitt, Erma TIRE CLASSIFIER Unavailable Unavailable Dewitt, Donna Silver TIRE CLASSIFIER Unavailable Unavailable Dewitt, Donna Silver TIRE CLASSIFIER Unavailable Unavailable Dewitt, Donna Silver TIRE CLASSIFIER Unavailable Unavailable Dewitt, Donna Silver TIRE CLASSIFIER Unavailable Unavailable Dewitt, Donna Silver TIRE CLASSIFIER Unavailable Unavailable Dewitt, Donna Silver TIRE CLASSIFIER Unavailable Unavailable ANTECOL, Lorie ZAIDI MD Unavailable Unavailable ANTECOL, Lorie ZAIDI MD Unavailable Unavailable ANTECOL, Lorie ZAIDI MD Unavailable Unavailable ANTECOL, Lorie ZAIDI MD Unavailable Unavailable ANTECOL, Lorei ZAIDI MD Unavailable Unavailable ANTECOL, Lorie ZAIDI [...] is protected by Article 27-F of the [facility] Public Health law. If you continue you may have access to information: Regarding HIV / AIDS; Provided by facilities licensed or operated by the [facility] Office of Mental Health; or Provided by the [facility] Office for People With Developmental Disabilities. If such information is present, then the following [facility] mandated warning applies: This information has [...] law may result in a fine or fdc sentence or both. A general authorization for the release of medical or other information is NOT sufficient authorization for further disc losure. Family History Family Member Name Family Member Gender Family Member Status Date o f Status Description Data Source(s) Unknown Male Problem [facility]ENT ([facility]) Unknown Female Problem MEDENT ([facility]) Encounters Encounter Providers Location Date Indications Data Source(s ) Outpatient Attender: DYAN MEREDITH MD Main Office 04/29/2021 12:15:00 PM EDT MEDENT ([facility]) Outpatient Attender: Adrianne Aguirre TIRE CLASSIFIER Main Office 03/30/2021 12:30:00 PM EDT [facility] Attender: Lisandra M[place]RQUEZ [place] 02:45:00 PM EDT MED[facility] ([facility] Outpatient Attender: Apryl MÁRQUEZ Main Office 12/29/2020 01:00:00 PM EDT MED[facility] ([facility]) Outpatient Attender: Lisandra MÁRQUEZ [place] 12/18/2020 11:30:00 AM EDT MED[facility] ([facility]) Outpatient Attender: Lisandra MÁRQUEZ Main office - [place] 09/15/2020 11:00:00 AM EST MED[facility] ([facility]) Outpatient Attender: Lisandra MÁRQUEZ Main office - [facility] n 07/08/2020 12:45:00 PM EST MEDENT ([facility]) Outpatient Attender: Apryl MÁRQUEZ Main Office 06/29/2020 07:15:00 AM EST MED[facility] ([facility]) Outpatient Attender: DYAN MEREDITH MD Main Office 05/26/2020 10:00:00 AM EST MED[facility] ([facility]) Outpatient Attender: Lisandra MÁRQUEZ Main office - [facility] n 04/08/2020 11:45:00 AM EDT MED[facility] ([facility]) Medications Medication Brand Name Start Date Product Form Dose Route Admi nistrative Instructions Pharmacy Instructions Status Indications Reaction Description Data Source(s) 240 mcg/0.7 mL 04/21/2021 12:00:00 AM EDT syringe 0 INJECT DIRECTED INJECT DIRECTED SOLD: 04/21/2021 [facility] Potassium 03/30/2021 12:00:00 AM EDT active MED[facility] ([facility]) Potassium Chloride 10 MEQ Extended Release Oral Tablet Potassium Chloride [facility] 12/28/2020 12:00:00 AM EDT ORAL active [facility] ([facility]) latanoprost 0.05 MG/ML Ophthalmic Solution Latanoprost 06/28/2020 12:00:00 AM EST OPHTHALMIC active [facility] ([facility]) carvedilol 6.25 MG Oral Tablet Carvedilol 06/28/2020 12:00:00 AM EST ORAL active [facility] ([facility]) Atenolol 50 MG Oral Tablet Atenolol 05/26/2020 12:00:00 AM EST ORAL completed [facility] ([facility]) carvedilol 6.25 MG Oral Tablet Carvedilol 05/25/2020 12:00:00 AM EST ORAL completed [facility] ([facility]) Clobetasol Propionate 0.5 MG/ML Topical Cream Clobetasol Pro pionate 03/30/2020 12:00:00 AM EDT active M EDENT ([facility]) carvedilol 6.25 MG Oral Tablet Carvedilol 12/04/2019 12:00:00 AM EDT ORAL completed [facility] Insurance Providers Payer name Policy type / Coverage type Policy ID Covered libertarian ID Covered libertarian's relationship to corbett Policy Corbett Plan Information MEDICARE A [id number] Self [id number] A Medicare (Part B) Medicare Primary [id number] Self [id number] Medicare (Part B) Medicare Primary [id number] Self [id number] Medicare (Part B) Medicare Primary [id number] Self [id number] Medicare (Part B) Medicare Primary [id number] Self [id number] Medicare (Part B) Medicare Primary [id number] Self [id number] Medicare (Part B) Medicare Primary [id number] Self [id number] MEDICARE [id number] SP [id number] A Medicare (Part B) Medicare Primary [id number] Self [id number] AARP U [id number] Self [id number] AARP U [id number] Self [id number] MVP (pr) Commercial [id number] Family Dependent Medicare [place] Primary [id number] Self [id number] A [facility] [id number] SP [id number] MEDICARE [id number] SP [id number] AARP HE[employer] CARE OPTIONS [id number] SP [id number] AARP HE[employer] CARE OPTIONS [id number] SP [id number] [employer] Options Medigap Part B [id number] Self [id number] [employer] Options Medigap Part B [id number] Self [id number] [employer] Options Medigap Part B [id number] Self [id number] [employer] Options Medigap Part B [id number] Self [id number] [employer] Options Medigap Part B [id number] Self [id number] [employer] Options Medigap Part B [id number] Self [id number] [employer] Options Medigap Part B [id number] Self [id number] Problems, Conditions, and Diagnoses Code Display Name Description Problem Type Effective Dates Data Source(s) I49.5 Sinus node dysfunction Sinus node dysfunction Problem 04/29/2021 12:00:00 AM EDT MED[facility] ([facility]) G47.33 Obstructive sleep apnea syndrome Obstructive sle ep apnea syndrome Problem 06/29/2020 12:00:00 AM EST [facility] ([facility]) Surgeries/Procedures Procedure Description Date Indications Data Source(s) Arterial Pressure Waveform Analysis For Assessment Of Centra l Art 04/29/2021 12:00:00 AM EDT [facility] ([facility]) OFFICE OUTPATIENT VISIT 15 MINUTES 04/29/2021 12:00:00 AM EDT [facility] ([facility]) Implantable Loop Recorder System, Review And Report 04/07/2021 12:00:00 AM EDT [facility] ([facility]) OFFICE OUTPATIENT VISIT 25 MINUTES 03/30/2021 12:00:00 AM EDT MED[facility] ([facility]) OFFICE OUTPATIENT VISIT 25 MINUTES 2021 12:00:00 AM EDT MED[facility] ([facility] Implantable Loop Recorder System, Review And Report 03/09/2021 12:00:00 AM EDT [facility] ([facility]) Implantable Loop Recorder System, Review And Report 02/04/2021 12:00:00 AM EDT [facility] ([facility]) Implantable Loop Recorder System, Review And Report 01/01/2021 12:00:00 AM EDT [facility] ([facility]) ECG ROUTINE ECG W/LEAST 12 LDS W/I&R 12/29/2020 12:00: 00 AM EDT [facility] ([facility]) OFFICE OUTPATIENT VISIT 25 MINUTES 12/29/2020 12:00:00 AM EDT MED[facility] ([facility]) OFFICE OUTPATIENT VISIT 25 MINUTES 12/18/2020 12:00:00 AM EDT MED[facility] ([facility] ) Implantable Loop Recorder System, Review And Report 11/30/2020 12:00:00 AM EDT [facility] ([facility]) Implantable Loop Recorder System, Review And Report 10/29/2020 12:00:00 AM EDT [facility] ([facility]) Implantable Loop Recorder System, Review And Report 09/23/2020 12:00:00 AM EDT [facility] ([facility]) Implantable Loop Recorder System, Review And Report 08/19/2020 12:00:00 AM EST [facility] ([facility]) Implantable Loop Recorder System, Review And Report 07/17/2020 12:00:00 AM EST [facility] ([facility]) ECG ROUTINE ECG W/LEAST 12 LDS W/I&R 06/29/2020 12:00: 00 AM EST [facility] ([facility]) Implantable Loop Recorder System, Review And Report 06/12/2020 12:00:00 AM EST [facility] ([facility]) Magnetic Resonance Angiogtaphy Head W/O Contrast Material(S) 05/16/2020 12:00:00 AM EST [facility] ([facility]) Magnetic Resonance Angiogtaphy Head W/O Contrast Material(S) 05/16/2020 12:00:00 AM EST [facility] ([facility]) Magnetic Resonance Angiography Neck W/O Contrast Materials 05/16/2020 12:00:00 AM EST [facility] ([facility]) Magnetic Resonance Angiography Neck W/O Contrast Materials 05/16/2020 12:00:00 AM EST [facility] ([facility]) MRI BRAIN BRAIN STEM W/O CONTRAST MATERIAL 05/16/2020 12:00:00 AM EST [facility] ([facility] ) MRI BRAIN BRAIN STEM W/O CONTRAST MATERIAL 05/16/2020 12:00:00 AM EST [facility] ([facility] ) Implantable Loop Recorder System, Review And Report 05/12/2020 12:00:00 AM EST [facility] ([facility]) Implantable Loop Recorder System, Review And Report 04/07/2020 12:00:00 AM EDT [facility] ([facility]) Results No Information Social History Code Duration Value Status Description Data Source(s ) Smoking 04/29/2021 12:00:00 AM EDT Patient is a former smoker completed Patient is a former smoker MED[facility] ([facility]) Vital Signs ID Date Data Source UNK Name Value Range Interpretation Code Description Data Source(s) Body height 73 [in_i] 73 [in_i] [facility]) 6'1" Systolic blood pressure--sitting 154 mm[Hg] 154 mm[Hg] [facility] ([facility]) CBP, large cuff/Ra Body weight 243.00 [lb_av] 243.00 [lb_av] MEDEN T ([facility]) Body mass index (BMI) [Ratio] 32.1 kg/m2 32.1 k g/m2 [facility] ([facility]) Heart rate 78 /min 78 /min [facility] ([facility]) Diastolic blood pressure--sitting 74 mm[Hg] 74 mm[Hg] [facility] ([facility]) CBP, large cuff/Ra Systolic blood pressure 155 mm[Hg] 155 mm[Hg] M EDENT ([facility]) Diastolic blood pressure 84 mm[Hg] 84 mm[Hg] [facility] ([facility]) Body weight 243.00 [lb_av] 243.00 [lb_av] MEDEN T ([facility]) Body height 73 [in_i] 73 [in_i] MED[facility] ([facility]) 6'1" Body mass index (BMI) [Ratio] 32.1 kg/m2 32.1 k g/m2 MED[facility] ([facility]) Systolic blood pressure 110 mm[Hg] 110 mm[Hg] M EDENT ([facility] ) Diastolic blood pressure 80 mm[Hg] 80 mm[Hg] MED[facility] ([facility] ) Heart rate 64 /min 64 /min MED[facility] ([facility] ) Respiratory rate 16 /min 16 /min MED[facility] ( [facility] ) Systolic blood pressure 126 mm[Hg] 126 mm[Hg] M EDENT ([facility]) sittting Heart rate 64 /min 64 /min [facility] ([facility]) Regular Body mass index (BMI) [Ratio] 32.5 kg/m2 32.5 k g/m2 [facility] ([facility]) Respiratory rate 16 /min 16 /min [facility] ( [facility]) Systolic blood pressure 126 mm[Hg] 126 mm[Hg] M EDENT ([facility]) sitting, large cuff Diastolic blood pressure 66 mm[Hg] 66 mm[Hg] [facility] ([facility]) sitting, large cuff Diastolic blood pressure 70 mm[Hg] 70 mm[Hg] [facility] ([facility]) sittting Body weight 246.00 [lb_av] 246.00 [lb_av] MEDEN T ([facility]) Body height 73 [in_i] 73 [in_i] [facility]) 6'1" Systolic blood pressure 106 mm[Hg] 106 mm[Hg] M EDENT ([facility] ) Diastolic blood pressure 70 mm[Hg] 70 mm[Hg] MED[facility] ([facility] ) Heart rate 76 /min 76 /min MED[facility] ([facility] ) Respiratory rate 20 /min 20 /min MED[facility] ( [facility] ) Body mass index (BMI) [Ratio] 32.6 kg/m2 32.6 k g/m2 [facility] ([facility]) Respiratory rate 16 /min 16 /min MED[facility] ( [facility]) Systolic blood pressure 128 mm[Hg] 128 mm[Hg] M EDENT ([facility]) sitting, large cuff Heart rate 92 /min 92 /min [facility] ([facility]) Regular Diastolic blood pressure 62 mm[Hg] 62 mm[Hg] [facility] ([facility]) sitting, large cuff Systolic blood pressure 132 mm[Hg] 132 mm[Hg] M EDENT ([facility]) sitting Diastolic blood pressure 62 mm[Hg] 62 mm[Hg] [facility] ([facility]) sitting Body weight 247.00 [lb_av] 247.00 [lb_av] MEDEN T ([facility]) Body height 73 [in_i] 73 [in_i] [facility] ([facility]) 6'1" Systolic blood pressure 130 mm[Hg] 130 mm[Hg] M EDENT ([facility] ) Diastolic blood pressure 70 mm[Hg] 70 mm[Hg] MED[facility] ([facility] ) Heart rate 64 /min 64 /min MED[facility] ([facility] ) Respiratory rate 16 /min 16 /min MED[facility] ( [facility] ) Body temperature 97.6 [degF] 97.6 [degF] MED[facility] ([facility]) Systolic blood pressure 132 mm[Hg] 132 mm[Hg] M ADDISON ([facility]) Diastolic blood pressure 76 mm[Hg] 76 mm[Hg] ADY ([facility])
[2021-05-05 23:00] VITALS: BP 170/82
[2021-05-05] MEDS ORDERED: D5W/0.9% SODIUM CHLORIDE 1,000 ML IV SCH (23:15)
[2021-05-06] VITALS (8 sets, daily range): BP systolic 156–173; BP diastolic 73–88
[2021-05-06] MEDS: oxyBUTYnin *DITROPAN XL* 5 MG TABCR PO SCH ×3 (02:08→20:47)
[2021-05-06] MEDS: ATORVASTATIN 20 MG TAB PO SCH ×2 (02:09→20:47)
[2021-05-06] MEDS: FERROUS GLUCONATE 324 MG TAB PO SCH ×3 (02:09→20:47)
[2021-05-06] MEDS: POTASSIUM CHLORIDE 10MEQ SR TABLET PO SCH ×3 (02:10→21:00)
[2021-05-06] MEDS: CARVedilol 6.25 MG TAB PO SCH ×3 (02:12→20:48)
[2021-05-06 05:49] LABS: HEMATOCRIT 33.1 % (42.0-52.0); HEMOGLOBIN 10.9 g/dl (13.5-17.5); MEAN CORPUSCULAR HEMOGLOBIN 33.2 pg (27.0-33.0); MEAN CORPUSCULAR HGB CONC 32.9 g/dl (32.0-36.5); MEAN CORPUSCULAR VOLUME 100.9 fl (80.0-96.0); PLATELET COUNT, AUTOMATED 111 10^3/uL (150-450); RED BLOOD COUNT 3.28 10^6/uL (4.30-6.10); WHITE BLOOD COUNT 4.3 10^3/uL (4.0-10.0)
[2021-05-06 06:16] LABS: BLOOD UREA NITROGEN 15 MG/DL (7-18); CALCIUM LEVEL 8.8 MG/DL (8.8-10.2); CARBON DIOXIDE LEVEL 28 MEQ/L (21-32); CHLORIDE LEVEL 111 MEQ/L (98-107); CREATININE FOR GFR 1.13 MG/DL (0.70-1.30); GLOMERULAR FILTRATION RATE > 60.0 (>42); GLUCOSE, FASTING 112 MG/DL (70-100); MAGNESIUM LEVEL 1.4 MG/DL (1.8-2.4); POTASSIUM SERUM 4.2 MEQ/L (3.5-5.1); SODIUM LEVEL 144 MEQ/L (136-145)
[2021-05-06 06:30] LABS: HEMOGLOBIN A1c 4.4 %
[2021-05-06] MEDS ORDERED: LR 1,000 ML IV SCH (08:00)
[2021-05-06] MEDS: OMEPRAZOLE 20 MG CAP PO SCH (09:56)
[2021-05-06] MEDS: TAMSULOSIN 0.4 MG CAP PO SCH (09:57)
[2021-05-06] MEDS: MAG SULF 1GM/100ML (MAG RUN) 1 GM in IV 1 EA IV SCH ×2 (12:14→13:44)
[2021-05-06] MEDS: FLUTICASONE PROP 0.05% NASAL SPRAY 16 GM (FLONASE) NARES SCH (12:14)
[2021-05-06] MEDS ORDERED: MUPIROCIN 2% OINT 22 GM TUBE As Ordered ONE (16:00)
[2021-05-06] MEDS ORDERED: ceFAZolin 1GM VIAL (J0690 PER 500MG) As Ordered ONE (16:00)
[2021-05-06] MEDS ORDERED: LIDOCAINE 1% SDV 30ML VIAL As Ordered ONE ×2 (16:00→16:48)
[2021-05-06] MEDS ORDERED: VANCOMYCIN 1000MG/20ML VIAL As Ordered ONE (16:03)
[2021-05-06] MEDS ORDERED: ISOVUE-300 61% 50ML VIAL As Ordered ONE (16:03)
--- NOTE | 2021-05-06 19:01 | REP ---
INDICATION: S/P PACEMAKER. COMPARISON: Yesterday at 5:44 p.m. TECHNIQUE: Portable FINDINGS: The technique utilized in obtaining the radiograph has magnified the cardiac silhouette and attenuated the interstitial markings. There is cardiomegaly accentuated by technique. Since the last examination a dual chamber bipolar pacemaker device has been placed the leads are appropriate and contiguous. The loop recorder seen on the prior exam has been removed. Lung banks are clear and stable. No acute patchy parenchymal opacities or pleural effusions have developed. There is no change in the osseous structures. IMPRESSION: Cardiomegaly without evidence of acute cardiopulmonary disease. <Electronically signed by Ruddy Taylor > 05/06/21 [id number]
--- NOTE | 2021-05-06 19:49 | REP ---
INDICATION: PACEMAKER. COMPARISON: None. TECHNIQUE: Two fluoroscopic views obtained during pacemaker device insertion. FINDINGS: The exam is limited. The leads are not visualized completely. The imaged portions of leads appear appropriate. Fluoroscopy time provided was 6 minutes 20.7 seconds IMPRESSION: As above <Electronically signed by Ruddy Taylor > 05/06/21 [id number]
[2021-05-06] MEDS ORDERED: CLOPIDOGREL 75 MG TAB PO ONE (20:00)
--- NOTE | 2021-05-06 20:10 | ECGEPIP ---
[facility] - ED Test Date: 2021-05-05 Pat Name: MILAN JIMENEZ Department: Room: - Gender: Male Patient Safety Manager: ROSA ISELA : 1950 Requested By: Edith Schmitt Order Number: [id number] Reading MD: Edith Schmitt Measurements Intervals [facility] Rate: 63 P: 62 WA: 162 QRS: 5 QRSD: 74 T: 25 QT: 402 QTc: 411 Interpretive Statements Normal sinus rhythm No prior Electronically Signed on 05-06-2021 20:10:24 EDT by Edith Schmitt
--- NOTE | 2021-05-06 21:38 | IPNPDOC ---
Date Seen The patient was seen on 05/06/21. Progress Note SUBJECTIVE: seen and examined at bedside. awaiting pacemaker. c/o worsened blurred vision, cannot specify which eye. denies CP, palpitations, fevers. OBJECTIVE PHYSICAL EXAMINATION: VITAL SIGNS: please see below General: NAD, comfortable HEENT: PERRLA, EOMI, sclerae clear Neck: supple, normal ROM, no JVD Respiratory: lungs CTAB, no wheeze, no rales, no crackles CVS: RRR, normal S1, S2, no murmurs Abdo: soft, no masses, no hepatosplenomegaly, BS+, no rebound tenderness Extremities: no edema, pulses 2+ MSK: no joint deformities, normal ROM Neuro: no focal neuro deficits, moving all 4 extremities, CN2-12 intact. Strength 5/5 in all 4 extremities. No nystagmus. Psych: calm, cooperative, AAO x 3 LABORATORY DATA, IMAGING STUDIES, MICROBIOLOGY: Please see below. DVT prophylaxis ordered?: SCDs. TEDs. Resume eliquis after pacemaker, per Dr. Washington ordered. ASSESSMENT AND PLAN: This is a 71 y/o male with a pmh of multiple cva, a-fib, htn, copd, chato on cpap who presents to our ED after being told by his neurologist to report there after a routine MRI/MRA scan. MRA taken today showing "3mm focal acute/subacute infarct of left superior frontal gyral cortex." Patient tells me that he himself feels fine and only complains of some worsening vision. . PLAN: 1. CVA - Imaging performed today showing new small subacute infarct - With unknown last known normal and imaging performed much earlier in the day, patient was outside window for tpa - Patient's only symptom at this time is increased blurry vision - holding plavix at this time for procedure tomorrow - will keep pt on tele overnight - continue atorvastatin - admit to med surg for tx - d/w Dr. Barone. C/w plavix, eliquis. Per Dr. Washington, plavix was resumed on 05/06/21 post pacemaker. Eliquis to resume in am. 2. A-fib - likely the cause of pt's many strokes - pt will still receive pacer placement tomorrow with Dr. Washington - holding eliquis - pt rate controlled at this time - npo after midnight - continue carvedilol 3. HTN - continue lisinopril 4. GERD - continue omprazole 5. BPH - continue alpha zoila, oxybutynin 6. Blurred vision - spoke to primary animal care supervisor - Vitreous surgeons in [place] - hx chronic posterior vitreous detachment OU. Reintal Ischemia OD. Retinal vein occlusion - has appointment on 05/10/21 at 10:10 am - I d/w ophto monitoring specialist Dr. Lizzette Rose Ok to follow up with primary ophto given presentation DVT prophylaxis - mechanical pre-op]. VS, I&O, 24H, Fishbone Vital Signs/I&O Vital Signs Date Time Temp Pulse Resp B/P (MAP) Pulse Ox O2 Delivery O2 Flow Rate FiO2 05/06/21 20:48 75 162/86 05/06/21 20:30 97.2 18 36 Nasal Cannula 2.0 I&O- Last 24 Hours up to 6 AM 05/06/21 06:00 Intake Total 0 ml Balance 0 ml Laboratory Data 24H LABS Laboratory Tests 2 05/06/21 02:23: Bedside Glucose (Misc Panel) 151H 05/06/21 05:27: Nucleated Red Blood Cells % (auto) 0.0, Anion Gap 5L, Glomerular Filtration Rate > 60.0, Estimated Mean Plasma Glucose 80, Hemoglobin A1c 4.4, Calcium Level 8.8, Magnesium Level 1.4L 05/06/21 11:54: Bedside Glucose (Misc Panel) 116H CBC/BMP Laboratory Tests 05/06/21 05:27 NIESHA BEAN MD May 06, 2021 21:38
[2021-05-06] MEDS ORDERED: MORPHINE 2 MG/ML 1ML VIAL (J2270) IV ONE (23:05)
[2021-05-07 00:30] VITALS: BP 162/84
[2021-05-07 04:00] VITALS: BP 141/85
[2021-05-07 06:11] LABS: HEMATOCRIT 35.6 % (42.0-52.0); HEMOGLOBIN 11.5 g/dl (13.5-17.5); MEAN CORPUSCULAR HEMOGLOBIN 32.5 pg (27.0-33.0); MEAN CORPUSCULAR HGB CONC 32.3 g/dl (32.0-36.5); MEAN CORPUSCULAR VOLUME 100.6 fl (80.0-96.0); PLATELET COUNT, AUTOMATED 124 10^3/uL (150-450); RED BLOOD COUNT 3.54 10^6/uL (4.30-6.10)
[2021-05-07 06:38] LABS: BLOOD UREA NITROGEN 13 MG/DL (7-18); CALCIUM LEVEL 8.5 MG/DL (8.8-10.2); CARBON DIOXIDE LEVEL 26 MEQ/L (21-32); CHLORIDE LEVEL 108 MEQ/L (98-107); CREATININE FOR GFR 1.13 MG/DL (0.70-1.30); GLOMERULAR FILTRATION RATE > 60.0 (>42); GLUCOSE, FASTING 121 MG/DL (70-100); MAGNESIUM LEVEL 1.9 MG/DL (1.8-2.4); POTASSIUM SERUM 4.5 MEQ/L (3.5-5.1); SODIUM LEVEL 141 MEQ/L (136-145)
[2021-05-07 08:00] VITALS: BP 145/70
[2021-05-07] MEDS ORDERED: CLOPIDOGREL 75 MG TAB PO SCH (09:00)
[2021-05-07] MEDS ORDERED: APIXABAN 5 MG TAB (ELIQUIS) PO SCH (09:00)
[2021-05-07] MEDS: TAMSULOSIN 0.4 MG CAP PO SCH (09:13)
[2021-05-07 09:14] VITALS: BP 145/70
[2021-05-07] MEDS: oxyBUTYnin *DITROPAN XL* 5 MG TABCR PO SCH (09:14)
[2021-05-07] MEDS: POTASSIUM CHLORIDE 10MEQ SR TABLET PO SCH (09:14)
[2021-05-07] MEDS: CARVedilol 6.25 MG TAB PO SCH (09:14)
[2021-05-07] MEDS: FERROUS GLUCONATE 324 MG TAB PO SCH (09:15)
[2021-05-07] MEDS: FLUTICASONE PROP 0.05% NASAL SPRAY 16 GM (FLONASE) NARES SCH (09:15)
[2021-05-07] MEDS: OMEPRAZOLE 20 MG CAP PO SCH (09:15)
--- NOTE | 2021-05-07 09:41 | RO ---
OPERATIVE NOTE DATE OF OPERATION: 05/05/2021 PREOPERATIVE DIAGNOSES: 1. Sick sinus syndrome. 2. Presence of subcutaneous cardiac rhythm monitor in situ. POSTOPERATIVE DIAGNOSES: 1. Sick sinus syndrome. 2. Presence of subcutaneous cardiac rhythm monitor in situ. FINDINGS: 1. Sick sinus syndrome. 2. Presence of subcutaneous cardiac rhythm monitor in situ. PROCEDURE PERFORMED: 1. Implantation of Medtronic dual-chamber pacemaker. 2. Removal of Medtronic subcutaneous cardiac rhythm monitor. SURGEON: Enmanuel Washington MD PROFESSOR OF RELIGION: None. ANESTHESIA: Lidocaine 1% local/monitored anesthetic care. SPECIMENS: Old Medtronic subcutaneous cardiac rhythm monitor. ESTIMATED BLOOD LOSS: Less than 10 mL. No blood products replaced. DRAINS: None. COMPLICATIONS: None. PROCEDURE DESCRIPTION: Patient was prepped and draped over the left anterior chest. 3M Ioban film was applied. Lidocaine 1% was used for local anesthetic. A left subclavian venogram was performed to obtain percutaneous access to the left subclavian vein by percutaneous technique with the assistance of a venogram consisting of 10 mL of a mixture of five Isovue to one part normal saline injected via a peripheral IV in the left upper extremity. This was then guidewire exchanged for the guidewire that came with one of the 7-Kyrgyz sheaths. Next, an incision approximately 2.5 inches in length was made 1 cm below the skin site of the guidewire using a PEAK PlasmaBlade. The PEAK PlasmaBlade was used to get through the fatty tissue and the fibrous Allison's fascia. The pacemaker pocket was then formed in a caudal direction using blunt dissection using two fingers to separate the prepectoral fascia from the Allison's fascia. Next, the guidewire was then pulled through the skin into the incision site. Next, I obtained a separate venous access using a second micropuncture needle placed about 2 cm more lateral to the muscle entry site of the first guidewire and under fluoroscopic visualization using the first guidewire as a guide, I obtained a separate venous access to the left subclavian vein and this guidewire was exchanged for a guidewire that came with the other 7-Kyrgyz sheath. Next, a 7-Kyrgyz sheath introducer was placed over the more lateral of the guidewires and this sheath was used for vein access for the right ventricular lead. The ventricular lead was placed into the right ventricle where it was secured with a total of 8 turns. This position ended up being unsatisfactory due to the ventricular pacing threshold of 2 volts. The ventricular lead was then unscrewed from the muscle and a new position under fluoroscopic guidance towards the right ventricular apex was found and the lead was secured with a total of 8 turns. This position was found to be electrically and anatomically satisfactory. The 7-Kyrgyz sheath was broken apart and removed and the ventricular lead was secured to the pectoral muscle using the supplied tie-down sleeve using two individual sutures consisting of 0 Ethibond to secure it to the pectoral muscle. Next, the other 7-Kyrgyz sheath introducer was placed over the more medial of the guidewires and was used for vein access for the right atrial lead. The right atrial lead was placed under fluoroscopic guidance with the help of a preformed J-stylette to place into the vicinity of the right ventricular apex where it was secured with a total of 10 turns. This position was found to be electrically and anatomically satisfactory. The 7-Kyrgyz sheath was then broken apart and removed. The atrial lead was secured to the pectoral muscle using the supplied tie-down sleeve using two individual sutures consisting of 0 Ethibond. Next, another 0 Ethibond suture was placed medial in the pocket along the incision line and used for the tie-down for the pacemaker pulse generator. I then took a medium sized Voter Gravity antimicrobial envelope and cut it into four pieces, which were placed in the pacemaker pocket. Next, the terminal pins of the ventricle and atrial leads were plugged into the respective ports in the header of the pacemaker pulse generator, and each one was secured by tightening the set screws with the hex screwdriver. A pull test was applied to each lead to demonstrate it was secure within the header. The excess lead material was then coiled underneath the pacemaker pulse generator and placed, along with the pacemaker pulse generator, into the pacemaker pocket with the excess lead material below and pacemaker pulse generator on top. The pacemaker pulse generator was then secured to the pectoral muscle using the previously placed 0 Ethibond suture. The deep layer was then closed using individual sutures consisting of 2-0 Vicryl. A few additional individual 3-0 Vicryl sutures were used to approximate the more superficial layer. The incision line was then closed using kristin. Next, I used some additional fluoroscopy to locate the subcutaneous cardiac rhythm monitor. Lidocaine 1% was used. Incision approximately 1-1.5 cm was made along the long axis of the loop recorder starting at the medial aspect. I then was able to grab onto the loop recorder with a snap and pull it out of the pocket. This incision was then closed using kristin. The patient tolerated the procedures without complications. The pacemaker pulse generator implanted was a Medtronic Bela XT DR SOTO Kiran, model W1DR01 with serial number [id number]. The Medtronic antimicrobial envelope had reference number [id number] with lot number [id number]. The right atrial lead implanted was a Medtronic model 4076-52 cm with serial number [id number]. Testing of the right atrial lead and bipolar configuration with the pulse analyzer showed capture threshold of 0.6 volts at 0.4 milliseconds with lead impedance of 551 ohms and R wave amplitude of 1.6 mV. A device-based testing in the operating room for the right atrial lead showed P wave amplitude of 2.4 mV with lead impedance of 494 ohms and capture threshold of 0.75 volts at 0.4 milliseconds. The right ventricle lead implanted was a Medtronic model 4076-58 cm with serial #[id number]. Testing of bipolar configuration for the right ventricle lead with the pulse analyzer showed in bipolar configuration a capture threshold of 1.6 volts at 0.4 milliseconds with lead impedance of 741 ohms and R wave amplitude of 18 millivolts. Device-based testing in the operating room for the right ventricle lead showed R wave amplitude of 15.1 millivolts with lead impedance of 684 ohms and capture threshold of 0.75 volts at 0.4 milliseconds. M[facility] IMOGEN[facility] BASSETT HOSPITALAbram
[2021-05-07 12:00] VITALS: BP 118/62
--- NOTE | 2021-05-07 13:01 | REP ---
INDICATION: Pacemaker placement re-eval.. COMPARISON: Multiple the latest yesterday at 6:47 p.m. a portable exam TECHNIQUE: PA and lateral FINDINGS: There is mild cardiomegaly. The dual chamber bipolar pacemaker device is within normal limits and unchanged. Curvilinear densities are seen in the left CP angle. The right CP angle has not been included on the radiograph. The lateral view is suboptimal since the patient's arms are down by his side. IMPRESSION: 1. No change in the pacemaker. 2. Mild cardiomegaly. 3. Likely plate like subsegmental atelectasis left CP angle. 4. Other findings and limitations as described above. <Electronically signed by Ruddy Taylor > 05/07/21 [id number]
--- NOTE | 2021-05-07 23:31 | DS.PDOC ---
Discharge Summary General Date of Admission May 05, 2021 at 19:32 Date of Discharge May 07, 2021 Specialist/Consultants [facility], Dr. Washington Discharge Summary PROCEDURES PERFORMED DURING STAY: Pacemaker placement on 05/06/2021 ADMITTING DIAGNOSES: 1. Small Subacute Infarct 2. Paroxysmal atrial fibrillation 3. Hypertension 4. GERD 5. BPH 6. Blurred vision DISCHARGE DIAGNOSES: 1. Small Subacute Infarct 2. Paroxysmal atrial fibrillation / Sick sinus syndrome 3. Hypertension 4. GERD 5. BPH 6. Blurred vision COMPLICATIONS/CHIEF COMPLAINT: Cva (Cerebral Vascular Accident). HISTORY OF PRESENT ILLNESS: Copied from admitting provider's H&P " This is a 71 y/o male with a pmh of multiple cva, a-fib, htn, copd, chato on cpap who presents to our ED after being told by his neurologist to report there after a routine MRI/MRA scan. Per patient and his , he is to undergo pacemaker placement tomorrow with Dr. Washington, cardiology, and thus was taken off of his plavix and eliquis 2 days ago. Patient states then went to his neurologist who sent him for routine mri/mra as he would not be able to undergo further mri scans after pacemaker placement. MRA taken today showing "3mm focal acute/subacute infarct of left superior frontal gyral cortex." Patient tells me that he himself feels fine and only complains of some worsening vision. Patient tells me that he has poor vision in the first place, but describes to me that he has been finding it harder to focus on objects and mostly "sees shadows." Patient states that he has no headache, new weakness, syncope, paresthesias, slurred speech. Patient also denying recent illness, fevers, chills, chest pain, sob, wheezing, abd pain, n/v/d/c, pedal edema. " HOSPITAL COURSE: Patient did well during hospitalization. Primary team touched base with Dr. Barone. Recommended continuing Plavix and Eliquis. Both were held for the pacemaker placement. Post placement both were restarted. Dr. Washington reviewed the pacemaker interrogation and post procedure CXR. Patient was okay for home. When I spoke with patient, he feels well. Denied chest pain or dyspnea. Patient cleared PT for home. Patient felt ready for home and was subs equently discharged home. DISCHARGE MEDICATIONS: Please see below. ALLERGIES: Please see below. PHYSICAL EXAMINATION ON DISCHARGE: VITAL SIGNS: Please see below. GENERAL: Comfortable, in no apparent distress HEENT: Head normocephalic, atraumatic CARDIOVASCULAR EXAMINATION: Regular rate and rhythm RESPIRATORY EXAMINATION: Lungs clear to auscultation bilaterally ABDOMINAL EXAMINATION: Soft, non-tender, normal bowel sounds EXTREMITIES: No pitting edema bilaterally PSYCHIATRIC EXAMINATION: Normal mood and affect LABORATORY DATA: Please see below. IMAGING: Please see chart for radiologist reports PROGNOSIS: Good ACTIVITY: As tolerated. DIET: As tolerated DISCHARGE PLAN: Home DISPOSITION: , Self-Care. DISCHARGE INSTRUCTIONS: 1. Follow up with PCP within 1 week 2. Keep appointment with ophthalmology appointment on 05/10/2021 10:10AM Dr. Washington discharge instructions 1. Remove left arm sling after patient returns from chest x-ray today. 2. Dr. Washington's office ([phone]) will call with date and time of follow-up appointment for pacemaker incision check and staple removalwithin [address] Washington's office will call with 5-6 week follow-up with date and time. 4. Please have patient keep Bioclusive dressing intact as long as it remains clean and dry. If dressings become soiled or wet, replaced with sterile dry dressing applied with paper tape. 5. Keep incision dry until 24 hours after all kristin removed. DISCHARGE CONDITION: Stable. Total time spent on discharge planning, discharge summary, and medication reconciliation: 40 minutes Vital Signs/I&Os Vital Signs Date Time Temp Pulse Resp B/P (MAP) Pulse Ox O2 Delivery O2 Flow Rate FiO2 05/07/21 12:00 97.1 66 20 118/62 (80) 94 Nasal Cannula 2.0 I&O- Last 24 Hours up to 6 AM 05/07/21 06:00 Intake Total 1430 ml Output Total 1335 ml Balance 95 ml Laboratory Data Labs 24H Laboratory Tests 2 05/07/21 01:43: Bedside Glucose (Misc Panel) 118H 05/07/21 05:57: Nucleated Red Blood Cells % (auto) 0.0, Anion Gap 7L, Glomerular Filtration Rate > 60.0, Calcium Level 8.5L, Magnesium Level 1.9 CBC/BMP Laboratory Tests 05/07/21 05:57 FSBS Laboratory Tests Test 05/07/21 01:43 Range/Units Bedside Glucose (Misc Panel) 118 83-110 MG/DL Discharge Medications Scheduled Alfuzosin HCl (Alfuzosin HCl ER) 10 Mg Tab.er.24h, 10 MG PO DAILY, (Reported) Apixaban (Eliquis) 5 Mg Tablet, 5 MG PO BID, (Reported) Atorvastatin Calcium (Atorvastatin Calcium) 80 Mg Tab, 80 MG PO QHS, (Reported) Carvedilol (Coreg) 6.25 Mg Tablet, 6.25 MG PO BID, (Reported) BP UNDER 150 Clopidogrel Bisulfate (Clopidogrel) 75 Mg Tab, 75 MG PO DAILY, (Reported) Dapsone (Dapsone) 25 Mg Tab, 25 MG PO BID, (Reported) Ferrous Gluconate (Ferrous Gluconate) 324 Mg Tablet, 324 MG PO BID, (Reported) Fluticasone Propionate (Flonase Allergy Relief) 50 Mcg/Act Spr, 1 SPRAY NARES DAILY, (Reported) Lisinopril (Lisinopril) 20 Mg Tab, 20 MG PO DAILY, (Reported) Multivitamin (Multivitamin) 1 Each Tablet, 1 EACH PO BID, (Reported) Omeprazole (Omeprazole) 20 Mg Cap, 20 MG PO DAILY, (Reported) Oxybutynin Chloride (Oxybutynin Chloride ER) 5 Mg Tab.er.24, 5 MG PO BID, (Reported) Potassium Chloride (K-Tab ER) 10 Meq Tablet.er, 10 MEQ PO BID, (Reported) Sildenafil Citrate (Viagra) 50 Mg Tab, 50 MG PO ASDIRECTED for erectile dysfunction, (Reported) 1 hour before sexual activity Allergies Coded Allergies: Gluten Flour (Verified Allergy, Unknown, 05/04/21) Tetanus Vaccines and Toxoid (Verified Allergy, Unknown, 05/04/21) risperidone (Verified Adverse Reaction, Mild, gyencomastia, 05/04/21) AGUSTO GOLD DO May 07, 2021 23:31
--- NOTE | 2021-05-08 17:40 | ECGEPIP ---
[facility] Test Date: 2021-05-06 Pat Name: MILAN JIMENEZ Department: Room: [place] [address] Gender: Male Dog Barber: PHILL : [phone] Requested By: Enmanuel Washington Order Number: [id number] Reading MD: Brett Fountain Measurements Intervals [place] Rate: 70 P: AL: 192 QRS: 168 QRSD: 78 T: 152 QT: 380 QTc: 410 Interpretive Statements Normal sinus rhythm Right axis deviation secondary to lead reversal BORDERLINE LOW VOLTAGE IN FRONTAL LEADS Last tracing on 05/05/21, 17:35. No remarkable changes but limb lead reversal Electronically Signed on 05-08-2021 17:40:12 EDT by Brett Fountain
== END 2021-05-07 15:08 | disposition home or self-care (01) | DRG 42 ==
LOC: M ED 17:15 → M ED INP 19:32 → ENRESERV 21:51 → M PCU 22:56
PROVIDERS: ADMIT Internal Medicine; ATTEND Internal Medicine
PROC: 0JPT3PZ Removal of Cardiac Rhythm Related Device from Trunk Subcutaneous Tissue and Fascia, Percutaneous Approach (ICD-10-PCS; principal; 2021-05-05)
PROC: 02H63JZ Insertion of Pacemaker Lead into Right Atrium, Percutaneous Approach (ICD-10-PCS; 2021-05-05)
PROC: 0JH636Z Insertion of Pacemaker, Dual Chamber into Chest Subcutaneous Tissue and Fascia, Percutaneous Approach (ICD-10-PCS; 2021-05-05)
PROC: 02HK3JZ Insertion of Pacemaker Lead into Right Ventricle, Percutaneous Approach (ICD-10-PCS; 2021-05-05)
DX: I63.59 Cerebral infarction due to unspecified occlusion or stenosis of other cerebral artery (principal); I49.5 Sick sinus syndrome; N40.0 Benign prostatic hyperplasia without lower urinary tract symptoms; H53.8 Other visual disturbances; I10 Essential (primary) hypertension; K21.9 Gastro-esophageal reflux disease without esophagitis; I48.0 Paroxysmal atrial fibrillation; G47.33 Obstructive sleep apnea (adult) (pediatric); Z90.49 Acquired absence of other specified parts of digestive tract; Z79.01 Long term (current) use of anticoagulants; Z79.899 Other long term (current) drug therapy; Z88.7 Allergy status to serum and vaccine; Z88.8 Allergy status to other drugs, medicaments and biological substances; Z91.018 Allergy to other foods; Z20.822 Contact with and (suspected) exposure to COVID-19

== ENCOUNTER → 2021-05-05 | Outpatient (CLI) | payer MEDICARE ==
[~2021-05-05] MED LIST changes: +ALFU10TA3 PO; +AMLO1TAB24 PO; -AMLO5TAB6 PO; +CORE6.25 PO; +ELIQ5TAB PO; +FERR32TA PO; -FLON1SPR; +FLON1SPR NARES; -ISOVUE-370 76% 100ML VIAL (Q9967) As Ordered ONE; +K-TA10TA2 PO; -LISI-538 PO; +LISI20TA33 PO; +MULT-90 PO; +OMEP1CAP73 PO; -OMEP20CA4 PO; +OXYB-54 PO; +XALA0.007 OU
== END ==
LOC: M LABSMTC 10:04
PROVIDERS: ATTEND Internal Medicine Cardiovascular Disease
DX: Z01.812 Encounter for preprocedural laboratory examination (principal); Z20.822 Contact with and (suspected) exposure to COVID-19

== ENCOUNTER → 2021-12-31 | Outpatient (CLI) | payer MEDICARE ==
[2021-12-31 13:46] LABS: BLOOD UREA NITROGEN 15 MG/DL (7-18); CREATININE FOR GFR 1.18 MG/DL (0.70-1.30); GLOMERULAR FILTRATION RATE > 60.0 (>42)
== END ==
LOC: M LAB 12:42
PROVIDERS: ATTEND Psychiatry & Neurology Neurology
DX: I10 Essential (primary) hypertension (principal)

== ENCOUNTER 2023-12-25 09:04 | Day surgery (SDC) | payer OTHER, MEDICARE ==
[~2023-12-25] VITALS: Ht 185.4 cm; Wt 116.1 kg
[~2023-12-25 09:04] MED LIST changes: +B-12100010 PO; +ECOT81TA5 PO; -K-TA10TA2 PO; +LISI40TA4 PO; +LR 1,000 ML IV SCH; +POTA-150 PO; +POTA-165 PO; +XARE10TA PO
[2023-12-25] MEDS: ATROPINE SULFATE 1% OPHTH SOLN 2ML BTL OD SCH (10:57)
[2023-12-25] MEDS: PHENYLEPHRINE 2.5% OPHTH SOL 2ML OD SCH (10:57)
[2023-12-25] MEDS: TETRACAINE 0.5% OPHTH SOLN 4ML OD SCH (10:58)
[2023-12-25] MEDS: FLURBIPROFEN 0.03% OPHTH SOLN 2.5 ML OD SCH (10:58)
[2023-12-25] MEDS ORDERED: fentaNYL 100 MCG/2 ML INJECTION As Ordered ONE (12:19)
[2023-12-25] MEDS ORDERED: MIDAZOLAM INJ 2MG/2ML VIAL As Ordered ONE (12:19)
[2023-12-25] MEDS: LIDOCAINE 1% SDV 5ML VIAL As Ordered ONE (12:29)
[2023-12-25] MEDS: CEFUROXIME 1MG/0.1ML INTRACAMERAL INJ As Ordered ONE (12:29)
[2023-12-25 12:44] VITALS: BP 148/67; TEMP 98.1; O2SAT 98
== END 2023-12-25 13:05 | disposition home or self-care (01) ==
LOC: M SDC 09:04
PROVIDERS: ATTEND Ophthalmology
DX: H25.11 Age-related nuclear cataract, right eye (principal); H40.1112 Primary open-angle glaucoma, right eye, moderate stage; I10 Essential (primary) hypertension; E78.00 Pure hypercholesterolemia, unspecified; D64.9 Anemia, unspecified; Z86.73 Personal history of transient ischemic attack (TIA), and cerebral infarction without residual deficits; J44.9 Chronic obstructive pulmonary disease, unspecified; G47.30 Sleep apnea, unspecified; Z79.899 Other long term (current) drug therapy; Z79.82 Long term (current) use of aspirin; Z79.01 Long term (current) use of anticoagulants; Z95.0 Presence of cardiac pacemaker; Z88.8 Allergy status to other drugs, medicaments and biological substances; Z88.7 Allergy status to serum and vaccine
CPT/HCPCS: 66991; C1783; J0697; J2250; J3010; V2632

== ENCOUNTER 2024-01-01 11:08 | Day surgery (SDC) | payer MEDICARE, OTHER ==
[~2024-01-01] VITALS: Ht 185.4 cm; Wt 116.1 kg
[~2024-01-01 11:08] MED LIST changes: +ALFU10TA23 PO; -ALFU10TA3 PO; +ATROPINE SULFATE 1% OPHTH SOLN 2ML BTL OS SCH; +FLURBIPROFEN 0.03% OPHTH SOLN 2.5 ML OS SCH; +PHENYLEPHRINE 2.5% OPHTH SOL 2ML OS SCH; +TETRACAINE 0.5% OPHTH SOLN 4ML OS SCH
[2024-01-01] MEDS: PROVISC 10 MG/ML 0.85ML SYRINGE As Ordered ONE (12:50)
[2024-01-01] MEDS ORDERED: MIDAZOLAM INJ 2MG/2ML VIAL As Ordered ONE (12:57)
[2024-01-01] MEDS: LIDOCAINE 1% SDV 5ML VIAL As Ordered ONE (13:04)
[2024-01-01] MEDS: CEFUROXIME 1MG/0.1ML INTRACAMERAL INJ As Ordered ONE (13:10)
[2024-01-01 13:24] VITALS: BP 159/71; TEMP 97.3; O2SAT 96
== END 2024-01-01 14:01 | disposition home or self-care (01) ==
LOC: M SDC 11:08
PROVIDERS: ATTEND Ophthalmology
DX: H25.12 Age-related nuclear cataract, left eye (principal); H40.1121 Primary open-angle glaucoma, left eye, mild stage; J44.9 Chronic obstructive pulmonary disease, unspecified; I10 Essential (primary) hypertension; E78.00 Pure hypercholesterolemia, unspecified; G47.30 Sleep apnea, unspecified; Z95.0 Presence of cardiac pacemaker; Z86.73 Personal history of transient ischemic attack (TIA), and cerebral infarction without residual deficits; Z79.82 Long term (current) use of aspirin; Z79.899 Other long term (current) drug therapy; Z79.01 Long term (current) use of anticoagulants; Z79.02 Long term (current) use of antithrombotics/antiplatelets; Z88.8 Allergy status to other drugs, medicaments and biological substances; Z88.7 Allergy status to serum and vaccine
CPT/HCPCS: 66991; C1783; J0697; J2250; V2632